=== PATIENT | female | born 1970 | race Caucasian/White ===

== ENCOUNTER 2021-07-05 09:07 | Emergency (ER) | payer OTHER, SELFPAY ==
[2021-07-05] VITALS (13 sets, daily range): BP systolic 141; BP diastolic 74; PULSE 68–78; RESP 13–22; TEMP 35.9; O2SAT 97–100
--- NOTE | ~2021-07-05 | XR_ITS ---
EXAMINATION: XR chest 2V DATE: 07/05/2021 09:32 INDICATION: Midsternal chest pain TECHNIQUE: PA and lateral views of the chest are obtained. COMPARISON: 12/21/2013 FINDINGS: The lungs are free of acute opacities. There is no pleural effusion or pneumothorax. The ca rdiomediastinal silhouette is normal. There is moderate thoracic spondylosis. IMPRESSION: 1. No acute cardiopulmonary abnormality. Reviewed, dictated and finalized at location A.
--- NOTE | 2021-07-05 09:14 | ECG_ITS ---
Measurements Intervals Ed[place] Rate: 77 P: 47 NE: 134 QRS: 22 QRSD: 96 T: 54 QT: 373 QTc: 424 Interpretive Statements SINUS RHYTHM NORMAL ECG Electronically Signed On 07-05-2021 9:23:40 CDT by Oj Gu D.O.
[2021-07-05] MEDS: ASPIRIN 81 MG CHEWABLE TABLET 324 MG PO (09:35)
[2021-07-05 09:51] LABS: Basophils Percent Auto 0.5 % (0.2-1.2); Eosinophils Percent Auto 0.2 % (0-4.4); Hematocrit 44.1 % (37.0-47.0); Hemoglobin 14.7 g/dL (12.0-15.0); Immature Granulocyte Absolute 0.03 K/mm3 (0.00-0.031); Immature Granulocyte Percent A 0.4 % (0-0.5); Lymphocytes Percent Auto 24.8 % (18.3-44.2); Mean Corpuscular HGB Conc 33.3 g/dl (32-36); Mean Corpuscular Volume 98.9 fl (80-100); Mean Platelet Volume 10.6 fl (7.4-10.4); Monocytes Absolute Auto 0.5 K/mm3 (0.1-0.6); Monocytes Percent Auto 6.5 % (2.6-8.5); Neutrophils Absolute Auto 5.5 K/mm3 (1.3-6.7); Neutrophils Percent Auto 67.6 % (45.5-73.1); Platelet Count Result 234 k/mm3 (150-375); Red Blood Count 4.46 M/mm3 (4.2-5.4); Red Cell Distribution Width 12.6 % (11.5-14.5); White Blood Count 8.1 K/mm3 (4.5-10.0)
[2021-07-05 09:59] LABS: Prothrombin Time 13.2 Seconds (11.1-14.7)
[2021-07-05 10:00] LABS: Partial Thromboplastin Time 29.7 SECONDS (22.3-36.8)
[2021-07-05 10:02] LABS: Alanine Aminotransferase 13 U/L (4-35); Albumin Level 4.5 g/dL (3.5-5.1); Alkaline Phosphatase 97 U/L (38-126); Anion Gap 8 mmol/L (8-16); Aspartate Amino Transferase 21 U/L (14-36); Bilirubin,Total 0.4 mg/dL (0.2-1.3); Blood Urea Nitrogen 11 mg/dL (7-17); Calcium 9.1 mg/dL (8.4-10.2); Carbon Dioxide 26 mmol/L (22-30); Chloride 104 mmol/L (98-107); Estimated CRCL calculation 58 ml/min; Estimated Glomerular Filt Rate 58; Glucose 108 mg/dL (65-110); Lipase 101 U/L (23-300); Potassium 4.3 mmol/L (3.4-5.0); Sodium 138 mmol/L (137-145)
[2021-07-05 10:13] LABS: Troponin I < 0.012 ng/mL (0.000-0.034)
--- NOTE | 2021-07-05 10:34 | ED.CHESTPAIN ---
HPI - Chest Pain General Chief Complaint: Chest Pain Stated Complaint: CP Time Seen by Provider: 07/05/21 09:12 Source: patient Mode of arrival: ambulatory Limitations: no limitations History of Present Illness HPI narrative: 51-year-old female presenting to the emergency department for evaluation of chest pain. Patient states last night when she was getting ready for bed she had onset of left-sided chest pain that did radiate to her left arm. Patient reports her symptoms lasted approximately 1 minute and then did resolve. Upon arrival to the department patient denies any chest pain. Patient states that she has had increased sweating of her feet but denies any other diaphoresis. Patient does report decreased p.o. intake over the last few days. Patient reports this morning when she went to work she once again began feeling poorly. Patient did have a blood pressure of 170/82 at work. Blood pressure is improved upon arrival to the ED. Patient is a smoker. Patient denies any prior history of high cholesterol, diabetes or hypertension. Patient reports she did have a stress test approximately 5 years ago. Patient denies any prior Angiocath. Related Data Allergies Allergy/AdvReac Type Severity Reaction Status Date / Time tramadol Allergy Intermediate Dizziness Verified 07/05/21 09:24 doxycycline Allergy Nausea Verified 07/05/21 09:24 Review of Systems Review of Systems: CONSTITUTIONAL: Denies fever, chills, or sweats. EYES: Denies visual changes, redness, or discharge. ENT: Denies rhinorrhea, congestion, sore throat, or otalgia. CARDIOVASCULAR: See HPI RESPIRATORY: Denies cough or dyspnea. GASTROINTESTINAL: Denies abdominal pain, nausea, vomiting, or diarrhea. GENITOURINARY: Denies dysuria or hematuria. SKIN: Denies rash or itching. MUSCULOSKELETAL: Denies back pain, joint pain, or myalgia. Exam Narrative: APPEARANCE: Well appearing, no pain, no distress, well-nourished. HEAD: normocephalic, atraumatic. EYES: PERRLA/EOMI, conjunctivae clear. NOSE: Normal no drainage NECK: Supple. No adenopathy, no masses. RESPIRATORY: Airway patent, respirations nonlabored. Clear to auscultation bilaterally, no rales, rhonchi, wheezing. CARDIOVASCULAR: Regular rate and rhythm without murmurs rubs or gallops. ABDOMINAL: Soft, nontender, nondistended, normal bowel sounds MUSCULOSKELETAL: Moves all extremities. Strength/ROM intact, No edema, No calf tenderness. NEURO: Alert. Cranial nerves II through XII intact. Grossly intact SKIN: Warm, dry. Normal Color Course Course Emergency Course: Patient was obtained the results of her work-up including chest x-ray, EKG and serial troponins. Patient was encouraged to have close follow-up with primary care physician for additional outpatient cardiac testing. Patient was also educated on reasons to return to the emergency department. All questions and concerns were addressed. Vital Signs Vital signs: Vital Signs Temperature 96.7 F L 07/05/21 09:09 Pulse Rate 77 07/05/21 09:09 Respiratory Rate 16 07/05/21 09:09 Blood Pressure 141/74 H 07/05/21 09:09 Pulse Oximetry 99 07/05/21 09:09 Temperature 96.7 F L 07/05/21 09:09 Pulse Rate 75 07/05/21 12:45 Respiratory Rate 14 07/05/21 12:45 Blood Pressure 141/74 H 07/05/21 09:09 Pulse Oximetry 98 07/05/21 12:45 MDM - Chest Pain Differential Diagnosis Differential diagnosis: Likely atypical chest pain and chest pain Lab Data Attestation: I reviewed the patient's lab results. Result diagrams: 07/05/21 09:42 07/05/21 09:42 Labs: Lab Results 07/05/21 07/05/21 07/05/21 Range/Units 09:42 09:42 09:42 WBC 8.1 (4.5-10.0) K/mm3 RBC 4.46 (4.2-5.4) M/mm3 Hgb 14.7 (12.0-15.0) g/dL Hct 44.1 (37.0-47.0) % MCV 98.9 (80-100) fl MCH 33.0 (26-34) pg MCHC 33.3 (32-36) g/dl RDW 12.6 (11.5-14.5) % Plt Count 234 (150-375) k/mm3 MPV 10.6 H (7.4-10.4) fl [place]
[2021-07-05 11:03] LABS: Magnesium 2.2 mg/dL (1.6-2.3)
[2021-07-05 12:34] LABS: Troponin I < 0.012 ng/mL (0.000-0.034)
== END 2021-07-05 13:14 | disposition home or self-care (01) ==
PROVIDERS: Emergency Provider Emergency Medicine; PCP Internal Medicine
DX: R07.89 Other chest pain (principal); F17.200 Nicotine dependence, unspecified, uncomplicated
CPT/HCPCS: 36415; 71046; 80053; 83690; 83735; 84484; 85025; 85610; 85730; 93005; 99284; A9270

== ENCOUNTER 2022-05-18 12:54 | Emergency (ER) | payer OTHER, SELFPAY ==
[2022-05-18 12:58] VITALS: BP 131/81; PULSE 110; RESP 18; TEMP 37.1; O2SAT 97
--- NOTE | 2022-05-18 13:38 | ED.SKABFB ---
HPI - Skin/Abscess/Foreign Bdy General Chief complaint: Skin/Abscess/Foreign Body <Elke Chandler PA-C - Last Filed: 05/18/22 18:29> Stated complaint: abscess <Elke Chandler PA-C - Last Filed: 05/18/22 18:29> Time Seen by Provider: 05/18/22 13:11 <Elke Chandler PA-C - Last Filed: 05/18/22 18:29> History of Present Illness HPI narrative: 51-year-old female reports for evaluation of an abscess to her upper mid back x5 days. She reports intermittent hot and cold flashes, but has not recorded her temp at home. Pt reports extensive history of abscesses in the past, most recently in the past 6 weeks with multiple small lesions to her bilateral extremities, scalp and back. Patient reports she has never seen a restaurant busser due to her insurance coverage and long wait times for appointment. Denies CP, neck pain, WILSON, n/v/d, history of recent back procedures or injections, drug use. She does report intermittent numbness to her LUE, however reports this is positional, specifically when she puts her left arm under her pillow at night. Denies other extremity paresthesias or weakness. Pt reports taking tylenol, flexeril, and using oatmeal baths w/ some improvement. <Elke Chandler PA-C - Last Filed: 05/18/22 18:29> Related Data Allergies/Adverse reactions: Allergies Allergy/AdvReac Type Severity Reaction Status Date / Time tramadol Allergy Intermediate Dizziness Verified 05/18/22 13:43 doxycycline Allergy Nausea Verified 05/18/22 13:43 hydrocodone Allergy Vomiting Verified 05/18/22 13:43 oxycodone Allergy Vomiting Verified 05/18/22 13:43 <Elke Chandler PA-C - Last Filed: 05/18/22 18:29> Review of Systems Review of Systems: CONSTITUTIONAL: Denies fever, chills EYES: Denies visual changes, redness, or discharge. ENT: Denies rhinorrhea, congestion, sore throat, or otalgia. CARDIOVASCULAR: Denies chest pain, palpitations, or edema. RESPIRATORY: Denies cough or dyspnea. GASTROINTESTINAL: Denies abdominal pain, nausea, vomiting, or diarrhea. GENITOURINARY: Denies dysuria or hematuria. SKIN: Denies rash or itching. MUSCULOSKELETAL: Denies joint pain, or myalgia. NEUROLOGIC: Denies headache, numbness, dizziness, or weakness. PSYCHIATRIC: Denies anxiety or depression. <Elke Chandler PA-C - Last Filed: 05/18/22 18:29> Exam Narrative: GENERAL: Well-appearing, well-nourished, and in no acute distress. Pt sitting in exam bed comfortably and conversational. HEAD: Normocephalic, atraumatic. EYES: PERRLA and EOMI. NECK: Supple. No adenopathy or masses. No midline vertebral tenderness. CHEST: Clear to auscultation. No respiratory distress. No wheezes rales or rhonchi HEART: Regular rate and rhythm. No murmur heard. Normal peripheral pulses. ABDOMEN: Soft, nontender, nondistended, normal active bowel sounds. EXTREMITIES: Normal range of motion. No edema. SKIN: 4cm of induration with overlying blanching erythema and warmth and a central pustule located in midline back around T2-T4. No areas of fluctuance. Multiple healing lesions to upper extremities and scalp without areas of induration, fluctuation, erythema. NEURO: No focal deficits. Alert and oriented x3. Machine Cell Tuber strength, dorsiflexion and plantarflexion 5/5 bilaterally. Sensation intact in all dermatomes to BUE and BLE. PSYCH: Normal mood and affect. <Elke Chandler PA-C - Last Filed: 05/18/22 18:29> Course [employer]ING [employer]AT CAPTAIN/PA Physician Supervision For this patient encounter, I reviewed the SHRIMPING BOAT CAPTAIN or PA documentation, treatment plan, and medical decision making and I had [id number] time with this patient. I performed all aspects of the MDM as documented. <Juanis Chand MD - Last Filed: 06/13/22 15:57> Vital Signs Vital signs: Vital Signs Temperature 98.7 F 05/18/22 12:58 Pulse Rate 110 H 05/18/22 12:58 Respiratory Rate 18 05/18/22 12:58 Blood Pressure 131/81 05/18/22 12:58 Pulse Oximetry 97 05/18/22 12:58 Temperature
[2022-05-18 13:42] VITALS: BP 144/85; PULSE 97; RESP 18; O2SAT 99
[2022-05-18] MEDS: SODIUM CHLORIDE 0.9% IV 1,000 ML 999 ML IV CONT (13:50)
[2022-05-18] MEDS: KETOROLAC 30 MG/ML VIAL (*BKC) IV PUSH (13:51)
[2022-05-18 14:07] LABS: Basophils Absolute Auto 0.1 K/mm3 (0.0-0.1); Basophils Percent Auto 0.3 % (0.2-1.2); Eosinophils Absolute Auto 0.1 K/mm3 (0-0.3); Eosinophils Percent Auto 0.7 % (0-4.4); Hematocrit 42.7 % (37.0-47.0); Immature Granulocyte Absolute 0.05 K/mm3 (0.00-0.031); Immature Granulocyte Percent A 0.3 % (0-0.5); Lymphocytes Absolute Auto 2.45 K/mm3 (0.9-3.2); Lymphocytes Percent Auto 16.9 % (18.3-44.2); Mean Corpuscular HGB Conc 35.1 g/dl (32-36); Mean Corpuscular Hemoglobin 33.3 pg (26-34); Mean Corpuscular Volume 94.9 fl (80-100); Mean Platelet Volume 10.3 fl (7.4-10.4); Monocytes Absolute Auto 0.8 K/mm3 (0.1-0.6); Monocytes Percent Auto 5.4 % (2.6-8.5); Neutrophils Absolute Auto 11.1 K/mm3 (1.3-6.7); Neutrophils Percent Auto 76.4 % (45.5-73.1); Platelet Count Result 245 k/mm3 (150-375); Red Cell Distribution Width 12.3 % (11.5-14.5); White Blood Count 14.5 K/mm3 (4.5-10.0)
[2022-05-18 14:09] LABS: Alanine Aminotransferase 22 U/L (6-35); Albumin Level 4.6 g/dL (3.5-5.1); Alkaline Phosphatase 105 U/L (38-126); Anion Gap 6 mmol/L (8-16); Aspartate Amino Transferase 30 U/L (14-36); Bilirubin,Total 0.4 mg/dL (0.2-1.3); Blood Urea Nitrogen 9 mg/dL (7-17); Calcium 9.6 mg/dL (8.4-10.2); Carbon Dioxide 27 mmol/L (22-30); Chloride 105 mmol/L (98-107); Estimated CRCL calculation 68 ml/min; Estimated Glomerular Filt Rate > 60; Glucose 106 mg/dL (65-110); Sodium 138 mmol/L (137-145)
[2022-05-18 16:12] VITALS: BP 122/79; PULSE 80; RESP 18; O2SAT 100
== END 2022-05-18 16:14 | disposition home or self-care (01) ==
PROVIDERS: Emergency Provider Physician Assistant; PCP Internal Medicine
DX: L03.312 Cellulitis of back [any part except buttock and flank] (principal); L02.212 Cutaneous abscess of back [any part, except buttock and flank]
CPT/HCPCS: 10060; 36415; 80053; 85025; 96361; 96374; 99284; J1885; J7030

== ENCOUNTER 2023-02-12 01:29 | Day surgery (SDC) | payer OTHER, SELFPAY ==
[2023-01-28 13:21] VITALS: BMI 31.0
--- NOTE | 2023-02-10 10:29 | SUR.PREOP ---
Patient called regarding upcoming procedure. Reviewed preop instructions, appointment times, and procedure prep.
--- NOTE | 2023-02-11 15:18 | PM.HPGS ---
History of Present Illness History of Present Illness Consent: Risks, benefits, and alternatives have been discussed and questions answered. Patient agrees to proceed with procedure. Chief complaint: neoplasm screening Narrative: Carmen Dillon is a 52 year old female Referred for colon cancer screening. Review of Systems Review of Systems: All systems reviewed & are unremarkable except as noted in HPI and below [facility] Social History Social History Smoking packs per day: 1 Smoking cigarettes per day: 20.0 Smoking status: Current every day smoker Tobacco type: cigarettes Alcohol intake: never Substance use: never Substance use type: does not use Living arrangements: with family Spiritual care concerns: No Meds Home Medications and Allergies Home Medications Medication Instructions Recorded Confirmed Type alprazolam 1 mg tablet 0.5 mg PO HS 01/28/23 02/12/23 History cholecalciferol (vitamin D3) 125 125 mcg PO DAILY 01/28/23 02/12/23 History mcg (5,000 unit) capsule (Dialyvite Vitamin D) estradiol 1 mg tablet 1 mg PO DAILY 01/28/23 02/12/23 History hydroxyzine pamoate 25 mg capsule 25 mg PO DAILY 01/28/23 02/12/23 History (Vistaril) metoclopramide HCl 10 mg tablet 10 mg PO DAILY 01/28/23 02/12/23 History (Reglan) inswbulqvysf-ghtfnhyr-urzxul 1 tablet PO DAILY 01/28/23 02/12/23 History tablet (Multivitamin 50 Plus tablet) trazodone 100 mg tablet 100 mg PO HS 01/28/23 02/12/23 History Allergies Allergy/AdvReac Type Severity Reaction Status Date / Time tramadol Allergy Intermediate Dizziness Verified 02/12/23 11:42 doxycycline Allergy Nausea Verified 02/12/23 11:42 hydrocodone Allergy Vomiting Verified 02/12/23 11:42 oxycodone Allergy Vomiting Verified 02/12/23 11:42 Exam Const: General: alert Orientation/consciousness: patient oriented x3 Resp: Auscultation: clear to auscultation bilaterally Cardio: Rhythm: regular rhythm GI: GI Palp: Yes Soft to palpation and No Tenderness to palpation present (GI) Neuro: General: patient oriented x3 Assessment and Plan Assessment and plan (1) Colon cancer screening: Code(s): Z12.11 - Encounter for screening for malignant neoplasm of colon Status: Acute Assessment and Plan: Colonoscopy with possible biopsy or polypectomy or cautery or injection of substances.
--- NOTE | 2023-02-12 11:46 | P.PNAN_ITS ---
Anes - Initial Pre Proc Eval Procedure: Operation Date: 02/12/23 13:00 Proposed Procedures p Screening Colonoscopy - Linus Singh MD Date/Time: 02/12/23 11:46 Surgeon: Linus Singh MD Pre Op Diagnosis: neoplasm screening Patient Data Age: 52 Gender: F Height: 1.57 m Weight: 77 kg Allergies Allergy/AdvReac Type Severity Reaction Status Date / Time tramadol Allergy Intermediate Dizziness Verified 02/12/23 11:42 doxycycline Allergy Nausea Verified 02/12/23 11:42 hydrocodone Allergy Vomiting Verified 02/12/23 11:42 oxycodone Allergy Vomiting Verified 02/12/23 11:42 Home Medications Medication Instructions Recorded Confirmed Type alprazolam 1 mg tablet 0.5 mg PO HS 01/28/23 02/12/23 History cholecalciferol (vitamin D3) 125 125 mcg PO DAILY 01/28/23 02/12/23 History mcg (5,000 unit) capsule (Dialyvite Vitamin D) estradiol 1 mg tablet 1 mg PO DAILY 01/28/23 02/12/23 History hydroxyzine pamoate 25 mg capsule 25 mg PO DAILY 01/28/23 02/12/23 History (Vistaril) metoclopramide HCl 10 mg tablet 10 mg PO DAILY 01/28/23 02/12/23 History (Reglan) wafwbsvtsoqg-znfljuzw-jwcgil 1 tablet PO DAILY 01/28/23 02/12/23 History tablet (Multivitamin 50 Plus tablet) trazodone 100 mg tablet 100 mg PO HS 01/28/23 02/12/23 History Patient hx anesthesia problems: none Family hx anesthesia problems: none Results Review: All pre-operative results and documents have been reviewed as part of the pre- operative evaluation. REPLACED BY [facility] Social History Social History Smoking packs per day: 1 Smoking cigarettes per day: 20.0 Smoking status: Current every day smoker Tobacco type: cigarettes Alcohol intake: never Substance use: never Substance use type: does not use Living arrangements: with family Spiritual care concerns: No Anes - Eval Final PreProcedure Day of Procedure 02/12/23 11:46 Patient weight: obese Heart: regular rate and rhythm Lungs: clear to auscultation Airway: Mallampati scale class II Neurological: alert and oriented Last oral intake: >/= 8 hours ASA classification: III Emergent: no Anesthetic plan: proceed Anesthesia type and monitoring: general GIVS and standard monitoring Results Review: All pre-operative results and documents have been reviewed as part of the pre- operative evaluation. Informed Consent: The patient's anesthetic plan and its attendant risks and benefits were discussed with the patient/family/POA. Questions were solicited and answers provided to the satisfaction of the patient/family/POA.
[2023-02-12] MEDS: LACTATED RINGERS 1,000 ML 150 ML IV CONT (11:58)
[2023-02-12 12:43] VITALS: BP 110/73; PULSE 84; RESP 22; O2SAT 98
[2023-02-12 12:53] VITALS: BP 110/63; PULSE 77; RESP 20; O2SAT 100
[2023-02-12 13:03] VITALS: BP 119/78; PULSE 72; RESP 19; O2SAT 100
== END 2023-02-12 13:16 | disposition home or self-care (01) ==
PROVIDERS: PCP Internal Medicine; Visit Provider Internal Medicine Gastroenterology
PROC: 0DJD8ZZ Inspection of Lower Intestinal Tract, Via Natural or Artificial Opening Endoscopic (ICD-10-PCS; CPT 45378; principal; 2023-02-12 13:00)
DX: Z12.11 Encounter for screening for malignant neoplasm of colon (principal); K57.30 Diverticulosis of large intestine without perforation or abscess without bleeding; K64.8 Other hemorrhoids; F17.210 Nicotine dependence, cigarettes, uncomplicated; Z79.890 Hormone replacement therapy; Z79.899 Other long term (current) drug therapy
CPT/HCPCS: 45378; J2704; J7120

== ENCOUNTER 2023-06-03 09:36 | Emergency (ER) | payer OTHER, SELFPAY ==
[2023-06-03 10:32] VITALS: BP 134/80; PULSE 70; RESP 20; TEMP 36.5; O2SAT 100
--- NOTE | 2023-06-03 11:00 | ED.GENADULT ---
HPI - General Adult General Chief complaint: Skin/Abscess/Foreign Body Stated complaint: poss shingles Time Seen by Provider: 06/03/23 10:27 History of Present Illness HPI narrative: Carmen Dillon is a 52 y/o female who presents with reports of having a rash form that is painful to her left hip area a couple days ago. Denies any fevers /chills -reports pain and mild itching Related Data Home Medications Medication Instructions Recorded Confirmed alprazolam 1 mg tablet 0.5 mg PO HS 01/28/23 02/12/23 cholecalciferol (vitamin D3) 125 125 mcg PO DAILY 01/28/23 02/12/23 mcg (5,000 unit) capsule (Dialyvite Vitamin D) estradiol 1 mg tablet 1 mg PO DAILY 01/28/23 02/12/23 hydroxyzine pamoate 25 mg capsule 25 mg PO DAILY 01/28/23 02/12/23 (Vistaril) metoclopramide HCl 10 mg tablet 10 mg PO DAILY 01/28/23 02/12/23 (Reglan) lzxxlbyxptyu-kcutpuvq-mrzeif 1 tablet PO DAILY 01/28/23 02/12/23 tablet (Multivitamin 50 Plus tablet) trazodone 100 mg tablet 100 mg PO HS 01/28/23 02/12/23 Allergies Allergy/AdvReac Type Severity Reaction Status Date / Time tramadol Allergy Intermediate Dizziness Verified 02/12/23 11:42 doxycycline Allergy Nausea Verified 02/12/23 11:42 hydrocodone Allergy Vomiting Verified 02/12/23 11:42 oxycodone Allergy Vomiting Verified 02/12/23 11:42 Review of Systems Review of Systems: All systems reviewed & are unremarkable except as noted in HPI and below PMFSH Social History Social History Smoking packs per day: 1 Smoking cigarettes per day: 20.0 Smoking status: Current every day smoker Tobacco type: cigarettes Alcohol intake: never Substance use: never Substance use type: does not use Living arrangements: with family Spiritual care concerns: No Exam Narrative: GENERAL: Well-appearing, well-nourished, and in no acute distress. HEAD: Normocephalic, atraumatic. EYES: PERRLA and EOMI. ENT: Nares clear, no rhinorrhea or epistaxis. Mucous membranes moist. Oropharynx without tonsillar hypertrophy exudate or other lesions. Bilateral TMs pearly al nonbulging NECK: Supple. No adenopathy or masses. No carotid bruits or JVD CHEST: Clear to auscultation. No respiratory distress. No wheezes rales or rhonchi HEART: Regular rate and rhythm. No murmur heard. Normal peripheral pulses. ABDOMEN: Soft, nontender, nondistended, normal active bowel sounds. EXTREMITIES: Normal range of motion. No edema. SKIN: Warm, dry, vesicular rash to left pelvic region wrapping around right side/ painful with palpation appears consistent with herpes zoster NEURO: No focal deficits. Alert and oriented x3. PSYCH: Normal mood and affect. Course Vital Signs Vital signs: Vital Signs Temperature 36.5 C 06/03/23 10:32 Pulse Rate 70 06/03/23 10:32 Respiratory Rate 20 06/03/23 10:32 Blood Pressure 134/80 06/03/23 10:32 Pulse Oximetry 100 06/03/23 10:32 Oxygen Delivery Room Air 06/03/23 10:32 Temperature 36.5 C 06/03/23 10:32 Pulse Rate 70 06/03/23 10:32 Respiratory Rate 20 06/03/23 10:32 Blood Pressure 134/80 06/03/23 10:32 Pulse Oximetry 100 06/03/23 10:32 Oxygen Delivery Room Air 06/03/23 10:32 Medical Decision Making [facility] Narrative Medical decision making narrative: 52 y/o female presents with reports of having pain to her left hip area that started about a week ago and then she noticed a painful rash pop up around the left hip area a couple days ago vesicular rash to left pelvic region wrapping around right side/ painful with palpation appears consistent with herpes zoster Patient denies wanting anything for pain Plan to start her on Acyclovir Follow up with PCP Return precautions provided. Medical Records Medical records reviewed: Yes I reviewed the external patient's medical records. Vital Signs Vital Signs: Vital Signs Temperature 36.5 C 06/03/23 10:32 Pulse Rate 70
[2023-06-03] MEDS: diphenhydrAMINE HCl CAP 25 MG CAPSULE PO (11:05)
[2023-06-03 11:08] VITALS: BP 135/80; PULSE 80; RESP 16; TEMP 36.5; O2SAT 100
== END 2023-06-03 11:11 | disposition home or self-care (01) ==
PROVIDERS: Emergency Provider Nurse Practitioner Family; PCP Internal Medicine
DX: B02.9 Zoster without complications (principal); F17.210 Nicotine dependence, cigarettes, uncomplicated
CPT/HCPCS: 99283; A9270

== ENCOUNTER 2024-04-12 13:01 | Outpatient (CLI) | payer OTHER, SELFPAY ==
--- NOTE | 2024-04-12 13:45 | NEURO_ITS ---
Impression: # Complains of numbness in feet. Non-diabetic. ? # Normal motor and sensory Nerve Conduction Study. ? # Normal needle/EMG exam without fibs or myotonia. ? # Clinical correlation recommended; Could be related to small fiber neuropathy. Nerve Conduction Studies Anti Sensory Summary Table ?Stim Site NR Peak (ms) P-T Amp (?V) Site1 Site2 Delta-P (ms) Dist (cm) Marlon (m/s) Left Sup Fibular Anti Sensory (Ant Lat Mall) 14 cm ? 2.8 10.2 14 cm Ant Lat Mall 2.8 16.0 57 Right Sup Fibular Anti Sensory (Ant Lat Mall) 14 cm ? 3.0 13.9 14 cm Ant Lat Mall 3.0 16.0 53 Left Sural Anti Sensory (Lat Mall) Calf ? 3.3 14.4 Calf Lat Mall 3.3 16.0 48 Right Sural Anti Sensory (Lat Mall) Calf ? 3.2 17.6 Calf Lat Mall 3.2 16.0 50 Motor Summary Table ?Stim Site NR Onset (ms) O-P Amp (mV) Site1 Site2 Delta-0 (ms) Dist (cm) Marlon (m/s) Left Peroneal Motor (Vastus Med) Ankle ? 4.2 3.9 Popit Ankle 7.2 39.0 54 Popit ? 11.4 3.7 Right Peroneal Motor (Vastus Med) Ankle ? 4.3 4.9 Popit Ankle 7.0 37.0 53 Popit ? 11.3 4.5 Left Tibial Motor (Abd Gorman Brev) Ankle ? 4.7 3.1 Knee Ankle 7.5 39.0 52 Knee ? 12.2 3.6 Right Tibial Motor (Abd Gorman Brev) Ankle ? 4.6 6.6 Knee Ankle 7.6 37.0 49 Knee ? 12.2 6.5 F Wave Studies ?NR F-Lat (ms) L-R F-Lat (ms) Left Peroneal (Mrkrs) (EDB) ? 45.16 1.48 Right Peroneal (Mrkrs) (EDB) ? 46.64 1.48 Left Tibial (Mrkrs) (Abd Hallucis) ? 46.22 0.35 Right Tibial (Mrkrs) (Abd Hallucis) ? 46.57 0.35 EMG ?Side Muscle Nerve Root Ins Act Fibs Amp Dur Recrt Comment Right AntTibialis Dp Br Fibular L4-5 Nml Nml Nml Nml Nml Right Gastroc Tibial S1-2 Nml Nml Nml Nml Nml Right Fibularis Long Sup Br Fibular L5-S1 Nml Nml Nml Nml Nml Right Flex Dig Long Tibial L5-S2 Nml Nml Nml Nml Nml Right Ext Dig Brev Dp Br Fibular L5, S1 Nml Nml Nml Nml Nml Right QuadratusFem QuadFemoris L4-5, S1 Nml Nml Nml Nml Nml Left AntTibialis Dp Br Fibular L4-5 Nml Nml Nml Nml Nml Left Gastroc Tibial S1-2 Nml Nml Nml Nml Nml Left Fibularis Long Sup Br Fibular L5-S1 Nml Nml Nml Nml Nml Left Flex Dig Long Tibial L5-S2 Nml Nml Nml Nml Nml Left Ext Dig Brev Dp Br Fibular L5, S1 Nml Nml Nml Nml Nml Left QuadratusFem QuadFemoris L4-5, S1 Nml Nml Nml Nml Nml ? MTDD
--- OUTSIDE RECORDS SUMMARY | 2024-04-12 13:50 | XMS_ITS | Clinical Summary ---
Author Organization [address] Address [address] [place] [address] Care Team Providers Care Loom Winder Tender Name Role Phone Rustam Cool MD Primary Care Provider [phone] Allergies Active Allergy Reactions Criticality Noted Date Comments Doxycycline Dizziness,Nausea only Low 12/21/2015 Oxycodone Vomiting Low 02/19/2022 Tramadol Dizziness Low 12/21/2015 Hydrocodone-Acetaminophen Vomiting Low 02/19/2022 Medications albuterol HFA (PROVENTIL HFA,VENTOLIN HFA,PROAIR HFA) 90 mcg/actuation inhaler 2 puffs every 8 (eight) hours as needed Active ALPRAZolam (XANAX) 1 mg tablet Take 1 tablet by mouth 3 (three) times a day as needed 02/07/2022 Active cholecalciferol (VITAMIN D-3) 2000 unit capsule Take 2,000 Units by mouth daily Active cyclobenzaprine (FLEXERIL) 10 mg tablet Take 10 mg by mouth 3 (three) times a day as needed 02/03/2022 Active estradioL (ESTRACE) 1 mg tablet Take 1 mg by mouth daily 01/27/2022 Active fluticasone propionate (FLONASE) 50 mcg/actuation nasal spray INSTILL 2 SPRAYS INTO EACH NOSTRIL ONCE DAILY 01/27/2022 Active metoclopramide (REGLAN) 10 mg tablet TAKE 1 TABLET BY MOUTH 1-3 TIMES A DAY NEEDED FOR BLOATING 01/25/2022 Active traZODone (DESYREL) 100 mg tablet Take 100 mg by mouth nightly 02/15/2022 Active MULTIVITAMIN ORAL Take 1 tablet by mouth daily Active naproxen (NAPROSYN) 250 mg tablet Take 250 mg by mouth 2 (two) times a day as needed 05/18/2022 Active omeprazole (PriLOSEC) 20 mg capsuleIndicati ons:gerd Take 20 mg by mouth daily Active Active Problems Problem Noted Date Diagnosed Date Abscess 05/20/2022 Blepharitis of left lower eyelid 02/19/2022 Overview (02/19/2022): Added automatically from request for surgery [id number] Immunizations Name Administration Dates Next Due Influenza, Unspecified 12/30/2021 Surgical History Surgery Date Site/Laterality Comments HYSTERECTOMY Social History Tobacco Use Types Packs/Day Years Used Date Smoking Tobacco: Every Day Cigarettes 1 Tobacco Cessation:Ready to Q uit: Not Asked; Counseling Given: Not Answered OASIS D0700: Social Isolation Answer Da te Recorded Frequency of experiencing loneliness or isolatio n Never 07/01/2022 OASIS A1250: Transportation Answer Date Recorded Lack of Transportation (Medical) No 07/01/2022 Lack of Transportation (Non-Medical) No 07/01/2022 Patient Unable or Declines to Respond No 07/01/2022 OASIS B1300: Health Literacy Answer Saqib e Recorded Frequency of needing help to read materials from doctor or pharmacy Never 07/01/2022 Social Connection and Isolat ion Panel [NHANES] Answer Date Recorded In a typical week, how many times do you talk on the phone with family, friends, or neighbors? More than three times a week 05/21/2022 How often do you get togethe r with friends or relatives? More than three times a week 05/21/2022 How often do you attend chur or advent services? Never 05/21/2022 Do you belong to any clubs o r organizations such as temple groups, unions, fraternal or athletic groups, or school groups? No 05/21/2022 How often do you attend meet ings of the clubs or organizations you belong to? Never 05/21/2022 Are you , , di vorced, , never , or living with a partner? 05/21/2022 AUDIT-C Answer Date Recorded Q1: How often do you have a drink containing alcohol? Never 04/01/2022 Q2: How many drinks containi ng alcohol do you have on a typical day when you are drinking? Patient does not drink Q3: How often do you have si x or more drinks on one occasion? Never 04/01/2022 Overall Financial Resource Strain (CARDIA) Answe r Date Recorded How hard is it for you to pa y for the very basics like food, housing, medical care, and heating? Not very hard 05/21/2022 PRAPARE - Transportation Answer Date Re corded In the past 12 months, has l ack of transportation kept you from medical appointments or from getting medications? No 05/01 In the past 12 months, has l ack of transportation kept you from meetings, work, or from getting things needed for daily living? No 05/21/2022 Personal Safety Answer Date Recorded Getting School Help Needed Not on file 06/09 Comments No Sex and Gender Information Value Date Recorded Sex Assigned at Not on file Legal Sex Female 9:08 PM GUEST RELATIONS REPRESENTATIVE Gender Identity Not on file Sexual Orientation Not on file Obstetrics History Last Filed Vital Signs Vital Sign Reading Time Taken Comments Blood Pressure 122/60 07/01/2022 10:56 AM CDT Pulse 80 07/01/2022 10:56 AM CDT Temperature 36.7 C (98 F) 07/01/2022 10:56 AM CDT Respiratory Rate 18 07/01/2022 10:56 AM CDT Oxygen Saturation 98% 07/01/2022 10:56 AM CDT Inhaled Oxygen Concentration - - Weight 76.7 kg (169 lb) 05/27/2022 1:23 PM CDT Height 157.5 cm (5' 2 ) 05/27/2022 1:23 PM CDT Body Mass Index 30.91 05/27/2022 1:23 PM CDT Plan of Treatment Health Maintenance Due Date Last Done Comments Breast Cancer Screening-Mammogram 1970 Colon Cancer Screening-Colonoscopy 1970 Depression Screening 1970 Hepatitis C Screening 1970 Pneumococcal vaccine <65 (1 of 2 - PCV) 07/01/1975 DTaP/Tdap/Td Vaccine (1 - Tdap) 1980 Hepatitis B Screening 07/01/1987 Regular Well Visit/Exam 18-64 07/01/1987 Zoster Vaccine (1 of 2) 07/01/2019 Covid-19 Vaccine ( season) 2023 01/18/2021, 05/26/2020, 05/03/2020 Influenza Vaccine (#1) 2023 12/30/2021, 2015 Insurance [facility] Care Teams Loom Winder Tender Relationship Specialty Start Date End Date Rustam Cool MD [address] [place] [address] PCP - General 02/05/19
--- OUTSIDE RECORDS SUMMARY | 2024-04-12 13:50 | XMS_ITS | CONTINUITY OF CARE DOCUMENT ---
Author Name aj rocha Address Unknown Organization [facility] Address [address] [place] [address] Phone [phone] Care Team Providers Care Drapery Installer Name Role Phone aj rocha Unavailable Unavailable
--- OUTSIDE RECORDS SUMMARY | 2024-04-12 13:50 | XMS_ITS | Patient Health Summary ---
Author Organization [facility] Address [address] [place] [address] Care Team Providers Care Director Of Collections Name Role Phone Cody Piña Primary Care Provider [phone] Note from [facility],non-owned Affiliates and Associated Physician Practices is amultiple site organization consisting of ambulatory clinics and hospital sitesin [place], [place], [place] and [place]. This disclosure is being madepursuant to the Care Everywhere program and may not contain all information available regarding this patient. Last updated 17.[facility] Allergies * Doxycycline * Hydrocodone-Acetaminophen(Vomiting) -Low Criticality * Oxycodone(Vomiting) -Low Criticality * Tramadol Medications * Be aware that medications may not be up to date on this document. Alwaysverify current medications with the patient. * Multiple Vitamins-Minerals (MULTIVITAMIN ADULT EXTRA C PO) Take 1 tablet by mouth once daily * Cholecalciferol 50 MCG (2000 UT) Take 2,000 Units by mouth once daily * estradiol (Estrace) 1 MG tablet(Started 01/27/2022) Take 1 (one) tablet by mouth once daily * metoclopramide (Reglan) 10 MG tablet(Started 05/21/2022) TAKE 1 TABLET BY MOUTH 1-3 TIMES A DAY NEEDED FOR BLOATING * traZODone (Desyrel) 100 MG tablet(Started 05/15/2022) Take 1 (one) tablet by mouth * ALPRAZolam (Xanax) 1 MG tablet(Started 02/07/2022) Take 1 (one) tablet by mouth 3 times daily as needed * clindamycin (Cleocin) 1 % lotion(Started 04/21/2023) Apply to affected area on the trunk and extremities 1-2 times daily. 30 day supply. 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 Abscess 05/20/2022 10/21/2022 Blepharitis of left lower eyelid 02/19/2022 10/21/2022 Immunizations * FLU VACCINE QUAD IIV4 PF ID(Given 12/21/2015) Social History Tobacco Use Types Packs/Day Years Used Date Smoking Tobacco: Every Day Cigarettes Smokeless Tobacco: Never Tobacco Cessation:Ready to Q uit: Not Asked Sex and Gender Information Value Date Recorded Sex Assigned at Not on file Gender Identity Not on file Sexual Orientation Not on file Procedures * CULTURE WOUND+GRAM STAIN(Performed 10/21/2022) * LAB RESULTS ORDER(Performed 10/21/2022) Results * CULTURE WOUND+GRAM STAIN (10/21/2022 2:47 PM CDT) Culture Aerobic [facility] Comment: CULTURE, AEROBIC BACTERIA WITH GRAM STAIN Micro Number: [id number] Test Status: Final Specimen Source: L upper arm Specimen Quality: Adequate Gram Stain: No organisms or white blood cells seen Result: Growth of skin ca (note: Growth does not include S. aureus, beta-hemolytic Streptococci or P. aeruginosa). Test Performed at: [facility] [address] DAMARIS MIX MD 10/21/2022 2:47 PM CDT 10/22/2022 5:30 AM CDT Rocael Hernandez MD LAB - MICROBIOLOGY O RDERABLES [address] [address] * LAB RESULTS ORDER (10/21/2022) Narrative 10/21/2022 Ordered by an unspecified provider. Scanned Document LAB - THERAPEUTIC DR HORAN MONITORING ORDERABLES Care Teams Director Of Collections Relationship Specialty Start Date End Date Cody Piña [address] [place] [address] PCP - General 10/20/23
--- OUTSIDE RECORDS SUMMARY | 2024-04-12 13:50 | XMS_ITS ---
Author Organization [facility] Address [address] [place] [address] Care Team Providers Care Shoe Patternmaker Name Role Phone Cody Torres Primary Care Provider [phone] Catrina Thacker Unavailable [phone] Allergies Allergen (clinical drug ingredient) Drug/Non Drug Allergy documented on EMR Reaction Allergy Type Onset Date Status oxycodone oxyCODONE HCl nausea and vomiting Drug Allergy Active Vicodin nausea and vomiting Drug Allergy Active doxycycline Doxycycline nausea and vomiting Drug Allergy Active codeine Codeine nausea and vomiting Drug Allergy Active hydrocodone Hydrocodone nausea and vomiting Drug Allergy Active REASON FOR VISIT bilateral leg pain Medications Medication SIG (Take, Route, Frequency, Duration) Notes Start Date End Date Status Estradiol 1 MG 1 tablet Orally Once a day Active Viibryd 20 MG 1 tablet with food Orally Once a day for 30 days Active Varenicline Tartrate 0.5 MG 1 tablet after eating with a full glass of water DAILY FOR THREE DAYS, TWICE DAILY FOR 4 DAYS, THEN BEGIN 1 MG TABS Orally DIRECTED for 7 days TAKE FOR 7 DAYS, THEN BEGIN 1 MG TABLETS 02/15/2024 02/22/2024 Active Xanax 0.5 MG 0.5-1 tablet as need ed Orally once a day for 30 days Active Propranolol HCl 10 MG 1 tablet Orally twice daily for 30 days As needed for anxiety Active Calcium 600 MG 1 tablet with meals Orally Twice a day Active traZODone HCl 150 MG 0.5-1 tablet as nee ded at bedtime Orally Once a day for 30 days Active Multivitamin - 1 tablet Orally Once a day Active Vitamin D 50 MCG (1999 UT) 1 tablet Oral ly Once a day Active Varenicline Tartrate 1 MG 1 tablet after eating with a full glass of water Orally Twice a day for 30 days (BEGIN AFTER COMPLETING 0.5 MG TAB) 02/23/2024 Active Social History Tobacco Use: Social History Observation Description Date Details (start date - stop date) Current Smoker NA - NA Sex Assigned At : Social History Observation Description Sex Assigned At Female Tobacco Control (Standard) Question Answer Notes Tobacco use: Current smoker Section Notes: Prescription # Filled Written Drug Label Qty Days Strength MME Prescriber Pharmacy Refill No. Refills State 09/23/2023 09/23/2023 ALPRAZolam 30.0 30 1 MG NA Catrina Thacker [facility] - [id number] [id number], [place], [place] NA 0 [place] 1 [id number] 08/22/2023 08/17/2023 ALPRAZolam 30.0 30 1 MG NA Catrina Thacker [facility] - [id number] [id number], [place], [place] NA 0 [place] 1 [id number] 07/22/2023 07/22/2023 ALPRAZolam 30.0 30 1 MG NA Catrina Thacker Inventory Control Analyst - [id number] [facility] Vital Signs Weight 185.6 lbs 02/15/2024 Height 62 in 02/15/2024 BMI 33.94 kg/m2 02/15/2024 Blood pressure systolic 120 mm Hg 02/15/20 24 Blood pressure diastolic 78 mm Hg 024 Heart Rate 75 /min 02/15/2024 Oximetry 98 % 02/15/2024 Respiratory Rate 16 /min 02/15/2024 Encounters Encounter Location Date Provider Diagnosis [address] [place] [address] 02/15/2024 Cody Torres PAD (peripheral miguel ry disease) I73.9 ; Tingling of both feet R20.2 and Nicotine dependence, unspecified, uncomplicated F17.200 Assessments Encounter Date Diagnosis (ICD Code) Assessment Notes Treatment Notes Treatment Clinical Notes Section Notes 02/15/2024 PAD (peripheral artery disease) (ICD-10 - I73.9) 02/15/2024 Tingling of both feet (ICD-10 - R20.2) WORK ON SMOKING CESSATION, AVOID SITTING WITH LEGS UNDER OR LEGS CROSSED. WALK TOLERATED AT LEAST 30 MIN PER DAY. 02/15/2024 Nicotine dependence, unspecified, uncomplicated (ICD-10 - F17.200) WARNED ABOUT POSSIBLE NIGHTMARES WITH CHANTIX. HAD SCREENING CT 11/2023. Plan Of Treatment Medication Medication Name Sig Start Date Stop Date Notes Varenicline Tartrate 0.5 MG 1 tablet aft er eating with a full glass of water DAILY FOR THREE DAYS, TWICE DAILY FOR 4 DAYS, THEN BEGIN 1 MG TABS Orally DIRECTED for 7 days 02/15/2024 02/22/2024 Varenicline Tartrate 1 MG 1 tablet after eating with a full glass of water Orally Twice a day for 30 days 02/23/2024 Future Test Test Name Order Date Arterial Doppler 02/15/2024 Nerve conduction study and lower extremi ty EMG 02/15/2024 Next Appt Details Follow Up: 4 Weeks, Reason: AFTER ARTERIAL DOPPLER, NCV/EMG Progress Notes * Erin DILLONraDOB:1970 ( 53 yo F)Acc No.[id number]:02/15/2024 Progress Notes Patient: Carmen CORDOBA Provider: Malcom Torres :1970 A ge:53 Y S ex:Female Date:02/15/2024 Address:[address] [place], [place] [id number] Check In:02:30 PM POWER LINE LINEMAN Subjective: * Chief Complaints: * B ilateral leg pain * HPI: I nterim History: FEET ALWAYS COLD. BUT WHEN SHE WEARS SHOES HER FEET SWEAT.. FROM KNEES DOWN SHE HAS A THROBBING SENSATION IN HER LEGS. SITS IN CHAIR WITH FEET UP UNDER HER. HAS NO PAIN WHEN LYING IN BED AT NIGHT. WALKING DOES NOT MAKE IT WORSE OR BETTER. IS CURRENTLY DOING HOME HEALTH WORK. ONSET OF SYMPTOMS A FEW MONTHS AGO. SMOKES ABOUT 1/2-1 PPD. HAS CUSTOM ORTHOTICS FROM 5 YEARS AGO. THEY CAUSE HER FEET TO HURT WORSE. Emergency room visit N o. Was hospitalized N o. D epression Screening: PHQ-9 L ittle interest or pleasure in doing things?Not at all F eeling down, depressed, or hopeless N ot at all T rouble falling or staying asleep, or sleeping too much N ot at all F eeling tired or having little energy N ot at all P oor appetite or overeating N ot at all F eeling bad about yourself or that you are a failure, or have let yourself or your family down N ot at all T rouble concentrating on things, such as reading the newspaper or watching television N ot at all M oving or speaking so slowly that other people could have noticed; or the opposite, being so fidgety or restless that you have been moving around a lot more than usual N ot at all T houghts that you would be better off or of hurting yourself in some way N ot at all T otal Score 0 S creening: Grady Suicide Severity Rating Scale (LF) D o you want to initiate with S creener form 1 . Wish to be : Have you wished you were or wished you could go to sleep and not wake up? N o 2 . Suicidal Thoughts: Have you actually had any thoughts of killing yourself? N o 6 . Suicide Behaviour: Have you ever done anything,started to do anything, or prepared to end your life? N o I nterpretation: L ow Risk C SSRS Interpretation and Follow Up Plan: CSSRS Interpretation and Follow Up Plan. CSSRS Interpretation and Follow Up Plan C SSRS Screen documented using SF Y es M oderate or High risk requires selection of a follow up plan C SSRS No/Low: intervention not needed at this time * ROS: B asic ROS: Admits W eakness. A dmits T ingling/Numbness. ? * Medical History: * Surgical History: p artial hysterectomy 2010abscess removal 04/2022 * Hospitalization/Major Diagno stic Procedure: a bscess- [facility] 2022hyo- [facility] 2009 * Family History: F ather: alive, diagnosed with Diabetes mellitus without mention of complication, type II or unspecified type, not stated as uncontrolled. M other: alive, diagnosed with Unspecified essential hypertension, Depression. C hildren: alive, ADHD, drug abuse, diagnosed with Bipolar disorder, unspecified, Depression. 1 son(s) , 1 daughter(s) - healthy. . 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 * Social History: P rimary Social History: L iving Arrangement L iving Arrangement: I ndependent Living I s this a supportive environment? Y es Alcohol Use A lcohol Use Frequency: N ever Illicit Substance Usage I llicit Substance Usage: N o Employment Status E mployment Status: U nemployed Leave of absence (unpaid) T obacco Use: T obacco Control (Standard) T obacco use: C urrent smoker M iscellaneous: M ethod of learning P referred method of learning: D iscussion P rescription # Filled Written Drug Label Qty Days Strength MME Prescriber Pharmacy Refill No. Refills State 09/23/2023 09/23/2023 ALPRAZolam 30.0 30 1 MG NA Catrina Thacker [facility] - [id number] [id number], [place], [place] NA 0 [place] 1 [id number] 08/22/2023 08/17/2023 ALPRAZolam 30.0 30 1 MG Catrina Corado [facility] - [id number] [facility] # [id number], [place], [place] NA 0 [place] 1 [id number] 07/22/2023 07/22/2023 ALPRAZolam 30.0 [address] [facility] [id number] [facility]. * Medications: T akingEstradiol 1 MG Tablet 1 tablet Orally Once a day Calcium 600 MG Tablet 1 tablet with meals Orally Twice a day Multivitamin - Tablet 1 tablet Orally Once a day Vitamin D 50 MCG (2000 UT) Tablet 1 tablet Orally Once a day traZODone HCl 150 MG Tablet 0.5-1 tablet as needed at bedtime Orally Once a day Viibryd 20 MG Tablet 1 tablet with food Orally Once a day Xanax 0.5 MG Tablet 0.5-1 tablet as needed Orally once a day Propranolol HCl 10 MG Tablet 1 tablet Orally twice daily As needed for anxietyTaking Estradiol 1 MG Tablet 1 tablet Orally Once a day Taking Calcium 600 MG Tablet 1 tablet with meals Orally Twice a day Taking Multivitamin - Tablet 1 tablet Orally Once a day Taking Vitamin D 50 MCG (2000 UT) Tablet 1 tablet Orally Once a day Taking traZODone HCl 150 MG Tablet 0.5-1 tablet as needed at bedtime Orally Once a day Taking Viibryd 20 MG Tablet 1 tablet with food Orally Once a day Taking Xanax 0.5 MG Tablet 0.5-1 tablet as needed Orally once a day Taking Propranolol HCl 10 MG Tablet 1 tablet Orally twice daily As needed for anxiety * Allergies: D oxycycline: nausea and vomitingCodeine: nausea and vomitingHydrocodone: nausea and vomitingoxyCODONE HCl: nausea and vomitingVicodin: nausea and vomitingno[Allergies Verified] Objective: * Vitals: I nitials: dt, Wt:185.6, Ht: 62, BMI:33.94, BP:120/78, HR:75, Oxygen sat %:98, RR:16, LMP: n/a, Pain scale:5. * Examination: G eneral Examination: GENERAL APPEARANCE: w ell developed, well nourished, in no acute distress. HEAD: n ormocephalic, atraumatic. NECK/THYROID: N O JVD. HEART: r egular rate and rhythm, no murmurs. LUNGS: r espirations regular and easy, clear to auscultation bilaterally. ABDOMEN: b owel sounds present, soft, nontender, nondistended. MUSCULOSKELETAL: n o joint deformity, swelling, redness, or warmth. EXTREMITIES: n o clubbing, cyanosis, or edema. PERIPHERAL PULSES: D P AND PT LLE 2+; RLE TRACE. NEUROLOGIC: c ranial nerves 2-12 grossly intact, alert and oriented, gait normal, normal muscle tone and strength, deep tendon reflexes 2+ symmetrical, sensory exam intact, no tremor, tic or rigidity, able to follows direction, speech is clear, face is symmetrical. Assessment: * Assessment: 1. P AD (peripheral artery disease) - I73.9 2 . T ingling of both feet - R20.2 (Primary) 3 . N icotine dependence, unspecified, uncomplicated - F17.200? Plan: * Treatment: 2. P AD (peripheral artery disease) I ana luisa: Arterial Doppler (Ordered for 02/15/2024) 3. N icotine dependence, unspecified, uncomplicated Start Varenicline Tartrate Tablet, 0.5 MG, 1 tablet after eating with a full glass of water DAILY FOR THREE DAYS, TWICE DAILY FOR 4 DAYS, THEN BEGIN 1 MG TABS, Orally, DIRECTED TAKE FOR 7 DAYS, THEN BEGIN 1 MG TABLETS, 7 days, 11, Refills 0; S tart Varenicline Tartrate Tablet, 1 MG, 1 tablet after eating with a full glass of water, Orally, Twice a day (BEGIN AFTER COMPLETING 0.5 MG TAB), 30 days, 60 Tablet, Refills 1. Clinical Notes: WARNED ABOUT POSSIBLE NIGHTMARES WITH CHANTIX. HAD SCREENING CT 11/2023. * Recommended Wellness and Pre vention Guidelines: * S tatus A lert L ast Done N ext Due A ction Taken N ONCOMPLIANT A lcohol use screening - 1 04/17/2023 - N ONCOMPLIANT A llergy List Verification - 1 04/17/2023 - N ONCOMPLIANT B reast cancer screening - 1 04/17/2023 - N ONCOMPLIANT C ervical cancer screening - 1 04/17/2023 - N ONCOMPLIANT C olorectal cancer screening - 1 04/17/2023 - N ONCOMPLIANT I nfluenza vaccine (over 50) - 1 04/17/2023 - * Procedure Codes: 3 008F BODY MASS INDEX [id number] MEDICAL NUTRITION, INDIV, [id number] BEHAV CHNG SMOKING 3-10 MIN * Preventive Medicine: Counseling: C are goal follow-up plan: BMI management provided Y es Above Normal BMI Follow-up L ifestyle education regarding diet S MOKING: Patient counselled on the dangers of tobacco use and urged to quit. . * Follow Up: 4 Weeks (Reason: AFTER ARTERIAL DOPPLER, NCV/EMG) * * R LINE LINEMAN Sign off status: Completed true * Provider: Malcom Torres Date: 04/17/2023 Generated for Feliz vizcaino/Syl/Anthonyitting on: 0 04/12/2024 01:50 PM POWER LINE LINEMAN History and Physical Notes * HPI (History of Present Illness) Category Sub-Category Detail Notes Category Not es Interim History Was hospitalized No Emergency room visit No Depression Screening PHQ-9 Little inte rest or pleasure in doing things: Not at all Feeling down, depressed, or hopeless: No t at all Trouble falling or staying asleep, or sl eeping too much: Not at all Feeling tired or having little energy: N ot at all Poor appetite or overeating: Not at all Feeling bad about yourself o r that you are a failure, or have let yourself or your family down: Not at all Trouble concentrating on thi ngs, such as reading the newspaper or watching television: Not at all Moving or speaking so slowly that other people could have noticed; or the opposite, being so fidgety or restless that you have been moving around a lot more than usual: Not at all Thoughts that you would be b annamarie off or of hurting yourself in some way: Not at all Total Score: 0 Screening Grady Suicide Sev erity Rating Scale (LF) Do you want to initiate with: Screener form 1. Wish to be : Have you wished you were or wished you could go to sleep and not wake up?: No 2. Suicidal Thoughts: Have you actually had any thoughts of killing yourself?: No 6. Suicide Behavior Question: Have you ever done anything,started to do anything, or prepared to end your life?: No Interpretation:: Low Risk Do Not Use CSSRS Interpretation and Follow Up Plan CSSRS Interpretation and Follow Up Plan CSSRS Screen documented using SF: Yes Moderate or High risk requir es selection of a follow up plan: CSSRS No/Low: intervention not needed at this time Examination Category Sub-Category Detail Notes Category Not es General Examination GENERAL APPEARANCE: well dev eloped, well nourished, in no acute distress HEAD: normocephalic, atrau matic NECK/THYROID: NO JVD HEART: regular rate and rhy thm, no murmurs LUNGS: respirations regular and easy, clear to auscultation bilaterally ABDOMEN: bowel sounds present , soft, nontender, nondistended NEUROLOGIC: cranial nerves 2-12 grossly intact, alert and oriented, gait normal, normal muscle tone and strength, deep tendon reflexes 2+ symmetrical, sensory exam intact, no tremor, tic or rigidity, able to follows direction, speech is clear, face is symmetrical EXTREMITIES: no clubbing, cyanosi s, or edema PERIPHERAL PULSES: DP AND PT LLE 2+; RL E TRACE MUSCULOSKELETAL: no joint deformity, swelling, redness, or warmth
--- OUTSIDE RECORDS SUMMARY | 2024-04-12 13:50 | XMS_ITS ---
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 Role Phone Cody Torres Primary Care Provider Catrina Thacker Unavailable [phone] Rome Borrero Unavailable [phone] REASON FOR VISIT 4 week F/U Medications Medication SIG (Take, Route, Frequency, Duration) Notes Start Date End Date Status Estradiol 1 MG 1 tablet Orally Once a day Active Calcium 600 MG 1 tablet with meals Orally Twice a day Active Vitamin D 50 MCG (1999) 1 tablet Orally Once a day Active Multivitamin - 1 tablet Orally Once a day Active Propranolol HCl 10 MG 1 tablet Orally twice daily for 30 days As needed for anxiety Active Varenicline Tartrate 1 MG 1 tablet after eating with a full glass of water Orally Twice a day for 30 days (BEGIN AFTER COMPLETING 0.5 MG TAB) 02/23/2024 Not-Taking traZODone HCl 100 MG 1.5-2 tablet at bed time as needed for sleep Orally for 30 days Active Xanax 0.5 MG 0.5-1 tablet as need ed Orally once a day for 30 days 03/08/2024 Active Viibryd 20 MG 1 tablet with food Orally Once a day for 30 days Active Social History Sex Assigned At : Social History Observation Description Sex Assigned At Female Section Notes: Prescription # Filled Written Drug Label Qty Days Strength MME Prescriber Pharmacy Refill No. Refills State 09/23/2023 09/23/2023 ALPRAZolam 30.0 30 1 MG NA Catrina Thacker [facility] [id number] [id number], [place], [place] NA 0 [place] 1 [id number] 08/22/2023 08/17/2023 ALPRAZolam 30.0 30 1 MG NA Catrina Thacker [facility] - [id number] [id number], [place], [place] NA 0 [place] 1 [id number] 07/22/2023 07/22/2023 ALPRAZolam 30.0 30 1 MG NA Catrina Thacker [facility] - [id number] [facility] Vital Signs Weight 185 lbs 03/08/2024 Height 62 in 03/08/2024 BMI 33.83 kg/m2 03/08/2024 Encounters Encounter Location Date Provider Diagnosis [address] [place] [address] 03/08/2024 Rome Borrero Anxiety F41.9 ; Depression F32.9 ; Insomnia G47.00 ; Benzodiazepine dependence F13.20 and Nicotine dependence, unspecified, uncomplicated F17.200 Assessments Encounter Date Diagnosis (ICD Code) Assessment Notes Treatment Notes Treatment Clinical Notes Section Notes 03/08/2024 Anxiety (ICD-10 - F41.9) Duration (acute/chronic) , stability (controlled/unc ontrolled): Chronic, improved with recent medication changes, patient has been able to cut back to 0.5 tablet alprazolam once nightly with recent medication adjustments BUT unable to stop completely, having to take to help with sleep, still has a goal of complete discontinuation , see HPI Current medications/eff icacy: Improvement reported Previous medication trials: Prozac, Wellbutrin, Zoloft, Effexor (Ineffective), Duloxetine, Vistaril ( sluggish ), vilazadone, alprazolam, trazodone Current/previou s therapies: Follows up with therapy a few times monthly Examination as documented - see pertinent aspects of office visit documentation. Pertinent diagnostics: LABS COLLECTED IN 10/2023 - MONITORED BY PCP RECOMMENDATIONS : DECREASE alprazolam as prescribed/disc ussed - educated patient/froilan n on adverse effects, risks and benefits, as well as alternative treatments INCREASE trazodone as needed/discusse d/prescribed to assist with sleep - educated patient/froilan n on adverse effects, risks and benefits, as well as alternative treatments Continue other medications as prescribed - educated patient/froilan n on adverse effects, risks and benefits, as well as alternative treatments Consume well balanced diet, preferably low in saturated fats (solid at room temperature, such as butter, margarine, Crisco, etc) and low in sodium (<2,000mg per day). Consume plenty of fruits/vegetabl es, healthy grains/whole grains, unsaturated/hea lthy fats (liquid at room temperature, such as olive oil, sunflower seed oil, canola, vegetable, etc.). Exercise regularly - Develop an exercise routine. 30 minutes of moderate exercise (walking at a brisk pace) 5 times per week is recommended. You should work hard enough to cause a sweat but still be able to talk with others while exercising. Exercise improves overall health - improves blood pressure and blood sugar, helps control weight, reduces stress, and improves mood. Practice stress reduction techniques, such as guided imagery, journaling, aromatherapy, acupuncture/acu pressure, deep breathing, etc. Practice healthy sleep hygiene - maintain regular routine, no caffeine after 1PM, no exercise 1-2 hours prior to bedtime, keep bedroom dark and cool, no TV or electronics while in bed. Consider melatonin as needed. Consider cognitive behavioral therapy for insomnia (CBT-I). Consider/Contin ue therapy. Consider substance cessation therapy as needed - contact office if desiring medication assisted therapy. Manage co-morbid conditions. Continue monitoring symptoms - report persistent or worsening/massiel rning symptoms to the office or go to the ER. For mental health CRISIS, please reach out to [phone] (National Suicide and Crisis Lifeline), 911, go to the emergency department, or contact the [facility] Crisis Unit/Team. Follow up as scheduled in 4 weeks or sooner if necessary. Follow up with PCP and/or other specialists as advised. NEXT STEP: Consider switching to propranolol ER. Consider increasing vilazodone as needed. Consider tapering alprazolam when appropriate/pat ient is ready. 03/08/2024 Depression (ICD-10 - F32.9) Duration (acute/chronic) , stability (controlled/unc ontrolled): Chronic, improving Current medications/eff icacy: Improvement reported, room for further improvement Previous medication trials: Prozac, Wellbutrin, Zoloft, Effexor (Ineffective), Duloxetine, Vistaril ( sluggish ), vilazadone, alprazolam, trazodone Current/previou s therapies: Follows up with therapy a few times monthly Examination as documented - see pertinent aspects of office visit documentation. Pertinent diagnostics: LABS COLLECTED IN 10/2023 - MONITORED BY PCP RECOMMENDATIONS : Continue/modify medications as prescribed - educated patient/froilan n on adverse effects, risks and benefits, as well as alternative treatments Consume well balanced diet, preferably low in saturated fats (solid at room temperature, such as butter, margarine, Crisco, etc) and low in sodium (<2,000mg per day). Consume plenty of fruits/vegetabl es, healthy grains/whole grains, unsaturated/hea lthy fats (liquid at room temperature, such as olive oil, sunflower seed oil, canola, vegetable, etc.). Exercise regularly - Develop an exercise routine. 30 minutes of moderate exercise (walking at a brisk pace) 5 times per week is recommended. You should work hard enough to cause a sweat but still be able to talk with others while exercising. Exercise improves overall health - improves blood pressure and blood sugar, helps control weight, reduces stress, and improves mood. Practice stress reduction techniques, such as guided imagery, journaling, aromatherapy, acupuncture/acu pressure, deep breathing, etc. Practice healthy sleep hygiene - maintain regular routine, no caffeine after 1PM, no exercise 1-2 hours prior to bedtime, keep bedroom dark and cool, no TV or electronics while in bed. Consider melatonin as needed. Consider cognitive behavioral therapy for insomnia (CBT-I). Consider/Contin ue therapy. Consider substance cessation therapy as needed - contact office if desiring medication assisted therapy. Manage co-morbid conditions. Continue monitoring symptoms - report persistent or worsening/massiel rning symptoms to the office or go to the ER. For mental health CRISIS, please reach out to [phone] (National Suicide and Crisis Lifeline), 911, go to the emergency department, or contact the [facility] Crisis Unit/Team. Follow up as scheduled in 4 weeks or sooner if necessary. Follow up with PCP and/or other specialists as advised. NEXT STEP: Consider increasing vilazadone. 03/08/2024 Insomnia (ICD-10 - G47.00) Duration (acute/chronic) , stability (controlled/unc ontrolled): Chronic, well controlled on current medication regimen - patient able to decrease alprazolam to 0.5 tablet at bedtime with recent medication adjustments BUT unable to stop completely, having to take to help with sleep, still has a goal of complete discontinuation , see HPI Current medications/eff icacy: Yes Previous medication trials: Vistaril ( sluggish ), alprazolam, trazodone Current/previou s therapies: Follows up with therapy a few times monthly Examination as documented - see pertinent aspects of office visit documentation. Pertinent diagnostics: LABS COLLECTED IN 10/2023 - MONITORED BY PCP RECOMMENDATIONS : DECREASE alprazolam as prescribed/disc ussed - educated patient/froilan n on adverse effects, risks and benefits, as well as alternative treatments INCREASE trazodone as needed/discusse d/prescribed to assist with sleep - educated patient/froilan n on adverse effects, risks and benefits, as well as alternative treatments Continue/modify other medications as prescribed - educated patient/froilan n on adverse effects, risks and benefits, as well as alternative treatments Consume well balanced diet, preferably low in saturated fats (solid at room temperature, such as butter, margarine, Crisco, etc) and low in sodium (<2,000mg per day). Consume plenty of fruits/vegetabl es, healthy grains/whole grains, unsaturated/hea lthy fats (liquid at room temperature, such as olive oil, sunflower seed oil, canola, vegetable, etc.). Exercise regularly - Develop an exercise routine. 30 minutes of moderate exercise (walking at a brisk pace) 5 times per week is recommended. You should work hard enough to cause a sweat but still be able to talk with others while exercising. Exercise improves overall health - improves blood pressure and blood sugar, helps control weight, reduces stress, and improves mood. Practice stress reduction techniques, such as guided imagery, journaling, aromatherapy, acupuncture/acu pressure, deep breathing, etc. Practice healthy sleep hygiene - maintain regular routine, no caffeine after 1PM, no exercise 1-2 hours prior to bedtime, keep bedroom dark and cool, no TV or electronics while in bed. Consider melatonin as needed. Consider cognitive behavioral therapy for insomnia (CBT-I). Consider/Contin ue therapy. Consider substance cessation therapy as needed - contact office if desiring medication assisted therapy. Manage co-morbid conditions. Continue monitoring symptoms - report persistent or worsening/massiel rning symptoms to the office or go to the ER. For mental health CRISIS, please reach out to [phone] ([place] Suicide and Crisis Lifeline), 911, go to the emergency department, or contact the [facility] Crisis Unit/Team. Follow up as scheduled in 4 weeks or sooner if necessary. Follow up with PCP and/or other specialists as advised. NEXT STEP: Consider increasing trazodone as needed. Consider discussing further tapering of alprazolam/disc ontinuation. 03/08/2024 Benzodiazepine dependence (ICD-10 - F13.20) See above assessment and plans 03/08/2024 Nicotine dependence, unspecified, uncomplicated (ICD-10 - F17.200) Duration (acute/chronic) , stability (controlled/unc ontrolled): Chronic, Smoking daily, has been smoking for a while - working on cutting back Current medications/eff icacy: Previous medication trials: Wellbutrin (nightmares), Chantix (nightmares), nicotine patches (unable to keep on), nicotine lozenges (GI upset secondary to taste) RECOMMENDATIONS : Continue substance cessation therapy/efforts as needed - contact office if desiring medication assisted therapy. Manage co-morbid conditions. Continue monitoring symptoms - report persistent or worsening/massiel rning symptoms to the office or go to the ER. For mental health CRISIS, please reach out to [phone] ([place] Suicide and Crisis Lifeline), 911, go to the emergency department, or contact the [facility] Crisis Unit/Team. Follow up as scheduled or sooner if necessary. Follow up with PCP and/or other specialists as advised. NEXT STEP: Consider nicotine nasal spray as needed if patient agreeable to trying. Plan Of Treatment Medication Medication Name Sig Start Date Stop Date Notes Propranolol HCl 10 MG 1 tablet Orally tw ice daily for 30 days traZODone HCl 100 MG 1.5-2 tablet at bed time as needed for sleep Orally for 30 days Xanax 0.5 MG 0.5-1 tablet as need ed Orally once a day for 30 days 03/08/2024 Viibryd 20 MG 1 tablet with food O rally Once a day for 30 days Treatment Notes Assessment Notes Anxiety Duration (acute/chronic), stability (controlled/uncontrolled): Chronic, improved with recent medication changes, patient has been able to cut back to 0.5 tablet alprazolam once nightly with recent medication adjustments BUT unable to stop completely, having to take to help with sleep, still has a goal of complete discontinuation, see HPI Current medications/efficacy: Improvement reported Previous medication trials: Prozac, Wellbutrin, Zoloft, Effexor (Ineffective), Duloxetine, Vistaril ( sluggish ), vilazadone, alprazolam, trazodone Current/previous therapies: Follows up with therapy a few times monthly Examination as documented - see pertinent aspects of office visit documentation. Pertinent diagnostics: LABS COLLECTED IN 10/2023 - MONITORED BY PCP RECOMMENDATIONS: DECREASE alprazolam as prescribed/discussed - educated patient/guardian on adverse effects, risks and benefits, as well as alternative treatments INCREASE trazodone as needed/discussed/prescribed to assist with sleep - educated patient/guardian on adverse effects, risks and benefits, as well as alternative treatments Continue other medications as prescribed - educated patient/guardian on adverse effects, risks and benefits, as well as alternative treatments Consume well balanced diet, preferably low in saturated fats (solid at room temperature, such as butter, margarine, Crisco, etc) and low in sodium (<2,000mg per day). Consume plenty of fruits/vegetables, healthy grains/whole grains, unsaturated/healthy fats (liquid at room temperature, such as olive oil, sunflower seed oil, canola, vegetable, etc.). Exercise regularly - Develop an exercise routine. 30 minutes of moderate exercise (walking at a brisk pace) 5 times per week is recommended. You should work hard enough to cause a sweat but still be able to talk with others while exercising. Exercise improves overall health - improves blood pressure and blood sugar, helps control weight, reduces stress, and improves mood. Practice stress reduction techniques, such as guided imagery, journaling, aromatherapy, acupuncture/acupressure, deep breathing, etc. Practice healthy sleep hygiene - maintain regular routine, no caffeine after 1PM, no exercise 1-2 hours prior to bedtime, keep bedroom dark and cool, no TV or electronics while in bed. Consider melatonin as needed. Consider cognitive behavioral therapy for insomnia (CBT-I). Consider/Continue therapy. Consider substance cessation therapy as needed - contact office if desiring medication assisted therapy. Manage co-morbid conditions. Continue monitoring symptoms - report persistent or worsening/concerning symptoms to the office or go to the ER. For mental health CRISIS, please reach out to [phone] (National Suicide and Crisis Lifeline), 911, go to the emergency department, or contact the [facility] Crisis Unit/Team. Follow up as scheduled in 4 weeks or sooner if necessary. Follow up with PCP and/or other specialists as advised. NEXT STEP: Consider switching to propranolol ER. Consider increasing vilazodone as needed. Consider tapering alprazolam when appropriate/patient is ready. Depression Duration (acute/chronic), stability (controlled/uncontrolled): Chronic, improving Current medications/efficacy: Improvement reported, room for further improvement Previous medication trials: Prozac, Wellbutrin, Zoloft, Effexor (Ineffective), Duloxetine, Vistaril ( sluggish ), vilazadone, alprazolam, trazodone Current/previous therapies: Follows up with therapy a few times monthly Examination as documented - see pertinent aspects of office visit documentation. Pertinent diagnostics: LABS COLLECTED IN 10/2023 - MONITORED BY PCP RECOMMENDATIONS: Continue/modify medications as prescribed - educated patient/guardian on adverse effects, risks and benefits, as well as alternative treatments Consume well balanced diet, preferably low in saturated fats (solid at room temperature, such as butter, margarine, Crisco, etc) and low in sodium (<2,000mg per day). Consume plenty of fruits/vegetables, healthy grains/whole grains, unsaturated/healthy fats (liquid at room temperature, such as olive oil, sunflower seed oil, canola, vegetable, etc.). Exercise regularly - Develop an exercise routine. 30 minutes of moderate exercise (walking at a brisk pace) 5 times per week is recommended. You should work hard enough to cause a sweat but still be able to talk with others while exercising. Exercise improves overall health - improves blood pressure and blood sugar, helps control weight, reduces stress, and improves mood. Practice stress reduction techniques, such as guided imagery, journaling, aromatherapy, acupuncture/acupressure, deep breathing, etc. Practice healthy sleep hygiene - maintain regular routine, no caffeine after 1PM, no exercise 1-2 hours prior to bedtime, keep bedroom dark and cool, no TV or electronics while in bed. Consider melatonin as needed. Consider cognitive behavioral therapy for insomnia (CBT-I). Consider/Continue therapy. Consider substance cessation therapy as needed - contact office if desiring medication assisted therapy. Manage co-morbid conditions. Continue monitoring symptoms - report persistent or worsening/concerning symptoms to the office or go to the ER. For mental health CRISIS, please reach out to [phone] (National Suicide and Crisis Lifeline), 911, go to the emergency department, or contact the [facility] Crisis Unit/Team. Follow up as scheduled in 4 weeks or sooner if necessary. Follow up with PCP and/or other specialists as advised. NEXT STEP: Consider increasing vilazadone. Insomnia Duration (acute/chronic), stability (controlled/uncontrolled): Chronic, well controlled on current medication regimen - patient able to decrease alprazolam to 0.5 tablet at bedtime with recent medication adjustments BUT unable to stop completely, having to take to help with sleep, still has a goal of complete discontinuation, see HPI Current medications/efficacy: Yes Previous medication trials: Vistaril ( sluggish ), alprazolam, trazodone Current/previous therapies: Follows up with therapy a few times monthly Examination as documented - see pertinent aspects of office visit documentation. Pertinent diagnostics: LABS COLLECTED IN 10/2023 - MONITORED BY PCP RECOMMENDATIONS: DECREASE alprazolam as prescribed/discussed - educated patient/guardian on adverse effects, risks and benefits, as well as alternative treatments INCREASE trazodone as needed/discussed/prescribed to assist with sleep - educated patient/guardian on adverse effects, risks and benefits, as well as alternative treatments Continue/modify other medications as prescribed - educated patient/guardian on adverse effects, risks and benefits, as well as alternative treatments Consume well balanced diet, preferably low in saturated fats (solid at room temperature, such as butter, margarine, Crisco, etc) and low in sodium (<2,000mg per day). Consume plenty of fruits/vegetables, healthy grains/whole grains, unsaturated/healthy fats (liquid at room temperature, such as olive oil, sunflower seed oil, canola, vegetable, etc.). Exercise regularly - Develop an exercise routine. 30 minutes of moderate exercise (walking at a brisk pace) 5 times per week is recommended. You should work hard enough to cause a sweat but still be able to talk with others while exercising. Exercise improves overall health - improves blood pressure and blood sugar, helps control weight, reduces stress, and improves mood. Practice stress reduction techniques, such as guided imagery, journaling, aromatherapy, acupuncture/acupressure, deep breathing, etc. Practice healthy sleep hygiene - maintain regular routine, no caffeine after 1PM, no exercise 1-2 hours prior to bedtime, keep bedroom dark and cool, no TV or electronics while in bed. Consider melatonin as needed. Consider cognitive behavioral therapy for insomnia (CBT-I). Consider/Continue therapy. Consider substance cessation therapy as needed - contact office if desiring medication assisted therapy. Manage co-morbid conditions. Continue monitoring symptoms - report persistent or worsening/concerning symptoms to the office or go to the ER. For mental health CRISIS, please reach out to [phone] ([employer] Suicide and Crisis Lifeline), 911, go to the emergency department, or contact the [facility] Crisis Unit/Team. Follow up as scheduled in 4 weeks or sooner if necessary. Follow up with PCP and/or other specialists as advised. NEXT STEP: Consider increasing trazodone as needed. Consider discussing further tapering of alprazolam/discontinuation. Benzodiazepine dependence See above asse ssment and plans Nicotine dependence, unspeci fied, uncomplicated Duration (acute/chronic), stability (controlled/uncontrolled): Chronic, Smoking daily, has been smoking for a while - working on cutting back Current medications/efficacy: Previous medication trials: Wellbutrin (nightmares), Chantix (nightmares), nicotine patches (unable to keep on), nicotine lozenges (GI upset secondary to taste) RECOMMENDATIONS: Continue substance cessation therapy/efforts as needed - contact office if desiring medication assisted therapy. Manage co-morbid conditions. Continue monitoring symptoms - report persistent or worsening/concerning symptoms to the office or go to the ER. For mental health CRISIS, please reach out to [phone] ([employer] Suicide and Crisis Lifeline), 911, go to the emergency department, or contact the [facility] Crisis Unit/Team. Follow up as scheduled or sooner if necessary. Follow up with PCP and/or other specialists as advised. NEXT STEP: Consider nicotine nasal spray as needed if patient agreeable to trying. Next Appt Details Follow Up: 4 Weeks - TELEPHO NE, Reason: 4 week psych follow up/med refill Progress Notes * Loly DILLON:1970 ( 53 yo F)Acc No.[id number]:03/08/2024 Patient: Carmen CORDOBA Provider: Roland Borrero APN :1970 A ge:53 Y S ex:Female Date:03/08/2024 Address:[address] [place], [place] [id number] Pcp:Cody Torres Subjective: * Chief Complaints: * 4 week F/U * HPI: S ummary: History of Presenting Illness: Patient is presenting for 4 week follow up. Patient attempted to stop alprazolam 0.5mg as previously discussed Reports she did this for 4 nights then restarted due to not being able to sleep Reports she is doing well on all other medications as currently prescribed Still has a goal of completely stopping alprazolam Patient agreeable to decreasing alprazolam to 0.25mg once nightly. Agreeable to continuing other medications as currently prescribed - agreeable to potentially increasing trazodone to 200mg at bedtime if necessary. Agreeable to following up in 4 weeks, sooner if necessary. - - - - - - - - - - - - - - - - - - - - - - - - - - - - - - - - - - - - - - - - - - - - - - - - - - - - - - - - - - - - - - - - - - - - - - - - - - - - - - - PERTINENT HPI DETAILS FROM PREVIOUS APPOINTMENT: Patient is presenting for 4 week follow up. 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 Agreeable to trying not to take 0.5mg alprazolam at bedtime - if necessary, patient informed she can crush 0.5mg (1/2 tablet) and take 1/2 of the dust/powder (0.25mg) with food as needed. Agreeable to following up in 4 weeks, sooner if necessary. - - - - - - - - - - - - - - - - - - - - - - - - - - - - - - - - - - - - - - - - - - - - - - - - - - - - - - - - - - - - - - - - - - - - - - - - - - - - - - - - - - -Medications Effectiveness: Symptoms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
--- OUTSIDE RECORDS SUMMARY | 2024-04-12 13:50 | XMS_ITS | Clinical Summary ---
Author Organization [facility] Address [facility] [place] [address] Care Team Providers Care Color Corrector Name Role Phone Unavailable Primary Care Provider Unavailabl e Social History Tobacco Use Types Packs/Day Years Used Date Smoking Tobacco: Never Assessed Comments Unknown Sex and Gender Information Value Date Recorded Sex Assigned at Not on file Legal Sex Female 4:04 PM CDT Gender Identity Not on file Sexual Orientation Not on file Plan of Treatment Health Maintenance Due Date Last Done Comments Cervical Cancer Screening Pa p Smear (Age 30 to 64) Every 3 Years 1969 Colorectal Cancer Screening Colonoscopy (10 Years) 1969 Annual Physical 1972 Hepatitis C 07/01/1987 DTaP, Tdap and Td Vaccines ( 1 - Tdap) 1988 Hepatitis B Vaccines (1 of 3 - 19+ 3-dose series) 1988 Cervical Cancer Screening Pa p with HPV Testing (Age 30 to 64) Every 5 Years 07/01/1999 Cervical Cancer Screening with HPV 07/01/1999 Mammogram Screening 2009 Zoster Vaccines (1 of 2) 07/01/2019 COVID-19 Vaccine (2023-2 5 season) 2023 Influenza Adult (#1) 2023 Meningococcal B Vaccine Aged Out No l onger eligible based on patient's age to complete this topic Meningococcal Vaccine Aged Out No monserrat anastasia eligible based on patient's age to complete this topic Pneumococcal Vaccine: Pediat rics (0 to 5 Years) and At-Risk Patients (6 to 64 Years) Aged Out No longer eligible b ased on patient's age to complete this topic RSV Immunizations Under 20 Months Aged Out No longer eligible based on patient's age to complete this topic
--- OUTSIDE RECORDS SUMMARY | 2024-04-12 13:50 | XMS_ITS | Clinical Summary ---
Author Organization [facility] Address [address] [place] [address] Care Team Providers Care Skirt Maker Name Role Phone Cody Piña Primary Care Provider [phone] Source Comments [facility],non-owned Affiliates and Associated Physician Practices is amultiple site organization consisting of ambulatory clinics and hospital sitesin [place], [place], [place] and [place]. This disclosure is being madepursuant to the Care Everywhere program and may not contain all information available regarding this patient. Last updated 17.[facility] Allergies Active Allergy Reactions Criticality Noted Date Comments Doxycycline 12/21/2015 Hydrocodone-Acetaminophen Vomiting Low 02/19/2022 Oxycodone Vomiting Low 02/19/2022 Tramadol 12/21/2015 Medications * Be aware that medications may not be up to date on this document. Alwaysverify current medications with the patient. Medication Sig Dispensed Refills Start Date End Date Status Multiple Vitamins-Minerals (MULTIVITAMIN ADULT EXTRA C PO) Take 1 tablet by mouth once daily Active Cholecalciferol 50 MCG (1999 UT) Take 2,000 Units by mouth once daily Active estradiol (Estrace) 1 MG tablet Take 1 (one) tablet by mouth once daily 01/27/2022 Active metoclopramide (Reglan) 10 MG tablet TAKE 1 TABLET BY MOUTH 1-3 TIMES A DAY NEEDED FOR BLOATING 05/21/2022 Active traZODone (Desyrel) 100 MG tablet Take 1 (one) tablet by mouth 05/15/2022 Active ALPRAZolam (Xanax) 1 MG tablet Take 1 (one) tablet by mouth 3 times daily as needed 02/07/2022 Active clindamycin (Cleocin) 1 % lotionIndications:Lolis terial folliculitis Apply to affected area on the trunk and extremities 1-2 times daily. 30 day supply. 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 Abscess 05/20/2022 10/21/2022 Blepharitis of left lower eyelid 02/19/2022 10/21/2022 Overview (10/21/2022): Added automatically from request for surgery [id number] Immunizations Name Administration Dates Next Due FLU VACCINE QUAD [id number] PF ID 12/21/2015 Social History Tobacco Use Types Packs/Day Years Used Date Smoking Tobacco: Every Day Cigarettes Smokeless Tobacco: Never Tobacco Cessation:Ready to Q uit: Not Asked Sex and Gender Information Value Date Recorded Sex Assigned at Not on file Gender Identity Not on file Sexual Orientation Not on file Plan of Treatment Upcoming Encounters Date Type Department Care Team (Late st Contact Info) Description 04/22/2024 1:00 PM ANCHOR 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 Office Visit [facility] - Dermatology [address] [place] [address], [facility] [address] Rocael Hernandez MD [address] [place] [address] [place] [address] Health Maintenance Due Date Last Done Comments COLOGUARD (AGES 45-75) - COL ON CA SCREENING 1969 COLON MONITORING 1969 COLONOSCOPY - COLON CA SCREENING 1969 CT COLONOGRAPHY - COLON CA SCREENING 1969 Colorectal Cancer Screening 1969 FIT - COLON CA SCREENING 1969 FLEX SIG - COLON CA SCREENING 1969 LIPID TESTING 1969 MAMMOGRAM 1969 PAP SMEAR 1969 HIV SCREENING 1984 HEPATITIS C SCREENING 06/26/1987 DTAP/TDAP/TD VACCINES (1 - Tdap) 1988 HEPATITIS B VACCINE (1 of 3 - 19+ 3-dose series) 1988 PNEUMOCOCCAL VACCINE 50+ (1 of 2 - PCV) 1988 PNEUMOCOCCAL VACCINE (1 of 2 - PCV) 1988 ZOSTER VACCINE (1 of 2) 07/01/2019 COVID-19 VACCINE (1 - 2023-2 5 season) 2023 INFLUENZA VACCINE (#1) 2023 2, 12/21/2015 DEPRESSION SCREENING 03/02/2024 HIB VACCINE Aged Out No longer eligi ble based on patient's age to complete this topic HPV VACCINE Aged Out No longer eligi ble based on patient's age to complete this topic MENINGOCOCCAL (Group B) VACCINE Aged Out No longer eligible b ased on patient's age to complete this topic MENINGOCOCCAL VACCINE Aged Out No monserrat anastasia eligible based on patient's age to complete this topic Care Teams Skirt Maker Relationship Specialty Start Date End Date Cody Piña [address] [place] [address] [place] [phone] PCP - General 10/20/23
--- OUTSIDE RECORDS SUMMARY | 2024-04-12 13:50 | XMS_ITS | Encounter Summary ---
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 Historical Provider [facility] HERMILO UREÑA Final Result documented in this encounter Visit Diagnoses Not on filedocumented in this encounter Additional Health Concerns Infection Onset Date Last Indicated Resolved Time COVID: Suspected 05/20/2022 05/20/2022 05/20/2022 1:13 PM CDT documented as of this encounter Care Teams Sheet Rock Applicator Relationship Specialty Start Date End Date Rustam Cool MD [address] [place] [address] PCP - General 02/05/19 documented as of this encounter
--- OUTSIDE RECORDS SUMMARY | 2024-04-12 13:50 | XMS_ITS | Encounter Summary ---
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 us Historical Provider Final Res ult documented in this encounter Visit Diagnoses Not on filedocumented in this encounter Additional Health Concerns Infection Onset Date Last Indicated Resolved Time COVID: Suspected 05/20/2022 05/20/2022 05/20/2022 1:13 PM CDT documented as of this encounter Care Teams Cdl Dedicated Truck Driver Relationship Specialty Start Date End Date Rustam Cool MD [address] [place] [address] PCP - General 02/05/19 documented as of this encounter
--- OUTSIDE RECORDS SUMMARY | 2024-04-12 13:50 | XMS_ITS | Encounter Summary ---
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 Historical Provider [facility] HERMILO UREÑA Final Result documented in this encounter Visit Diagnoses Not on filedocumented in this encounter Additional Health Concerns Infection Onset Date Last Indicated Resolved Time COVID: Suspected 05/20/2022 05/20/2022 05/20/2022 1:13 PM CDT documented as of this encounter Care Teams Historic Site Administrator Relationship Specialty Start Date End Date Rustam Cool MD [address] [place] [address] PCP - General 02/05/19 documented as of this encounter
--- OUTSIDE RECORDS SUMMARY | 2024-04-12 13:50 | XMS_ITS | Referral Summary ---
Author Organization [facility] Address [address] [place] [address] Care Team Providers Care Ski Patrol Officer Name Role Phone Cody Piña Primary Care Provider [phone] Source Comments [facility] [employer],non-owned Affiliates and Associated Physician Practices is amultiple site organization consisting of ambulatory clinics and hospital sitesin [place], [place], [place] and [place]. This disclosure is being madepursuant to the Care Everywhere program and may not contain all information available regarding this patient. Last updated 17.[facility] [employer] Allergies Active Allergy Reactions Criticality Noted Date [...] (10/21/2022): Added automatically from request for surgery [id number] Immunizations Name Administration Dates Next Due FLU [...] st Contact Info) Description 04/22/2024 1:00 PM PARTS IDENTIFIER Office Visit [facility] - Dermatology [address] [place] [address], [facility] [place] [address] Rocael Hernandez MD [address] [place] [address] [place] [address] Care Teams Ski Patrol Officer Relationship Specialty Start Date End Date Cody Piña [address] [place] [address] PCP - General 10/20/23
--- OUTSIDE RECORDS SUMMARY | 2024-04-12 13:50 | XMS_ITS | Referral Summary ---
Author Organization [address] Address [address] [place] [address] Care Team Providers Care Digital Marketing Apprentice Name Role Phone Rustam Cool MD Primary Care Provider [phone] Allergies Active Allergy Reactions Criticality Noted Date [...] (02/19/2022): Added automatically from request for surgery [id number] Immunizations Name Administration Dates Next Due Influenza, Unspecified 12/30/2021 Social History Tobacco Use Types Packs/Day Years Used Date Smoking Tobacco: Every Day Cigarettes 1 25 Tobacco Cessation:Ready to Q uit: Not Asked; [...] How often do you attend chur or muslim services? 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
--- OUTSIDE RECORDS SUMMARY | 2024-04-12 13:50 | XMS_ITS | Clinical Summary ---
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 Gender Identity Not on file Sexual Orientation Not on file Plan of Treatment Health Maintenance Due Date Last Done Comments Hepatitis C Virus (HCV) Screening 1969 TdaP Immunization 1969 Hepatitis B Immunization (1 of 3 - 19+ 3-dose series) 1988 Pap Smear 1990 Cervical Cancer Screening (CCS) 07/01/1999 HPV/Cotest 07/01/1999 Colonoscopy 2014 Colorectal Cancer Screening 2014 Cologuard 07/01/2019 Immunochemical Fecal Occult Blood 07/01/2019 Mammogram 07/01/2019 Pneumococcal Immunization (5 0+ years) (1 of 1 - PCV) 07/01/2019 Zoster Immunization (1 of 2) 07/01/2019 Influenza Immunization (#1) 2023 SARS-COV-2 Immunization ( - 2023-25 season) 2023 Respiratory Syncytial Virus (RSV) Immunization (Adult) (1 - 1-dose 75+ series) 2044 Meningococcal Immunization (ACWY) Aged Out No longer eligible based on patient's age to complete this topic Pneumococcal Immunization Combined Aged Out No longer eligible based on patient's age to complete this topic Rotavirus Immunization Aged Out No lo nger eligible based on patient's age to complete this topic
== END 2024-04-12 13:02 | disposition home or self-care (01) ==
LOC: ANHNEURO 13:03
PROVIDERS: PCP Internal Medicine; Visit Provider Internal Medicine
DX: R20.2 Paresthesia of skin (principal)
CPT/HCPCS: 95886; 95910

== ENCOUNTER 2024-05-27 14:07 | Outpatient (CLI) | payer SELFPAY ==
--- NOTE | ~2024-05-27 | US_ITS ---
EXAMINATION: US art doppler w press LE BI DATE: 05/27/2024 16:16 CDT INDICATION: Peripheral arterial disease TECHNIQUE: Segmental pressures and plethysmographic and Doppler waveforms of the brachial and lower e xtremity arteries were obtained. COMPARISON: None. FINDINGS: Right and left brachial artery pressures of 126 mm Hg and 111 mm Hg, respectively, are concordant (no rmal difference <= 30 mmHg). The right high-thigh pressure index is 1.28 (normal > 1.2). The right ankle-brachial index (RICKI) is 1 .22 (normal >= 0.9-1.0). The right great toe-brachial index (TBI) is 1.64 (normal >= 0.60). The right lower extremity segmental pressure gradients are normal (normal gradients <= 20-30 mmHg between dewayne cent levels on the same leg or the same levels on the two legs). The left high-thigh pressure index is 1.35. The left RICKI is 1.19. The left TBI is 0.94. The left lowe r extremity segmental pressure gradients are normal. IMPRESSION: 1. Normal bilateral ankle-brachial indices. Reviewed, dictated and finalized at location A.
--- OUTSIDE RECORDS SUMMARY | 2024-05-27 14:12 | XMS_ITS | Clinical Summary ---
Author Organization [facility] Address [facility] [place] [address] Care Team Providers Care Microsoft Windows Engineer Name Role Phone Unavailable Primary Care Provider [...]
--- OUTSIDE RECORDS SUMMARY | 2024-05-27 14:12 | XMS_ITS ---
Author Organization [facility] Address [address] [place] [address] Care Team Providers Care School Laboratory Technician Name Role Phone Cody Torres Primary Care Provider Catrina Thacker Unavailable [phone] Borre[place] Unavailable [phone] REASON FOR VISIT 1 Month Psych F/U & Med Refill Medications Medication SIG (Take, Route, Frequency, Duration) Notes Start Date End Date Status Xanax 0.5 MG 0.5-1 tablet as need ed Orally once a day for 30 days 04/05/2024 Active Varenicline Tartrate 1 MG 1 tablet after eating with a full glass of water Orally Twice a day for 30 days (BEGIN AFTER COMPLETING 0.5 MG TAB) 02/23/2024 Not-Taking Viibryd 20 MG 1 tablet with food Orally Once a day for 30 days Active traZODone HCl 100 MG TAKE 1.5 TO 2 TABLE TS BY MOUTH ONCE DAILY AT BEDTIME as NEEDED FOR SLEEP for 90 days Active Multivitamin - 1 tablet Orally Once a day Active Vitamin D 50 MCG (1999 UT) 1 tablet Orally Once a day Active Estradiol 1 MG 1 tablet Orally Once a day Active Calcium 600 MG 1 tablet with meals Orally Twice a day Active traZODone HCl 100 MG 1-1.5 tablet at bed time as needed for sleep Orally for 30 days Active Social History Tobacco Use: Social History [...] 30.0 30 1 MG NA Catrina Thacker [facility] - [id number] [id number], [place], [place] NA 0 [place] 1 [id number] 08/22/2023 08/17/2023 ALPRAZolam 30.0 30 1 MG NA Catrina Thacker [facility] - [id number] [facility] [id number], [place], [place] NA 0 [place] 1 [id number] 07/22/2023 07/22/2023 ALPRAZolam 30.0 30 1 MG NA Catrina Thacker [facility] - [id number] [facility] Vital Signs Height 62 in 04/05/2024 Encounters Encounter Location Date Provider Diagnosis [address] [place] [address] 04/05/2024 Rome Borrero Anxiety F41.9 ; Depression F32.9 ; Insomnia G47.00 ; Benzodiazepine dependence F13.20 and Nicotine dependence, unspecified, uncomplicated F17.200 Assessments Encounter Date Diagnosis (ICD Code) Assessment Notes Treatment Notes Treatment Clinical Notes Section Notes 04/05/2024 Anxiety (ICD-10 - F41.9) Duration (acute/chronic) , stability (controlled/unc ontrolled): Chronic, well controlled on current medication regimen, patient able to tolerate decrease in alprazolam to 0.25mg once nightly, wanting to decrease trazodone dose at this time, see HPI Current medications/eff icacy: Improvement reported Previous medication trials: Prozac, Wellbutrin, Zoloft, Effexor (Ineffective), Duloxetine, Vistaril ( sluggish ), vilazadone, alprazolam, trazodone Current/previou s therapies: Follows up with therapy a few times monthly Examination as documented - see pertinent aspects of office visit documentation. Pertinent diagnostics: LABS COLLECTED IN 10/2023 - MONITORED BY PCP RECOMMENDATIONS : CONTINUE alprazolam as prescribed/disc ussed, will consider decreasing further at follow up - educated patient/froilan n on adverse effects, risks and benefits, as well as alternative treatments DECREASE trazodone as discussed/presc ribed to assist with sleep - educated patient/froilan [...] to the emergency department, or contact the [facility] Crisis Unit/Team. Follow up as scheduled in 4 weeks or sooner if necessary. Follow up with PCP and/or other specialists as advised. NEXT STEP: Consider switching to propranolol ER. Consider increasing vilazodone as needed. Consider tapering alprazolam when appropriate/pat ient is ready. 04/05/2024 Depression (ICD-10 - F32.9) See assessment and plan for anxiety 04/05/2024 Insomnia (ICD-10 - G47.00) See assessment and plan for anxiety 04/05/2024 Benzodiazepine dependence (ICD-10 - F13.20) See assessment and plan for anxiety 04/05/2024 Nicotine dependence, unspecified, uncomplicated (ICD-10 - F17.200) [...] health CRISIS, please reach out to [phone] ([facility]), 911, go to the emergency department, or contact the [facility] Crisis Unit/Team. Follow up as scheduled or sooner if necessary. Follow up with PCP and/or other specialists as advised. NEXT STEP: Consider nicotine nasal spray as needed if patient agreeable to trying. Plan Of Treatment Medication Medication Name Sig Start Date Stop Date Notes Xanax 0.5 MG 0.5-1 tablet as need ed Orally once a day for 30 days 04/05/2024 Viibryd 20 MG 1 tablet with food O rally Once a day for 30 days traZODone HCl 100 MG 1-1.5 tablet at bed time as needed for sleep Orally for 30 days Treatment Notes Assessment Notes Anxiety Duration (acute/chronic), stability (controlled/uncontrolled): Chronic, well controlled on current medication regimen, patient able to tolerate decrease in alprazolam to 0.25mg once nightly, wanting to decrease trazodone dose at this time, see HPI Current medications/efficacy: Improvement reported Previous medication trials: Prozac, Wellbutrin, Zoloft, Effexor (Ineffective), Duloxetine, Vistaril ( sluggish ), vilazadone, alprazolam, trazodone Current/previous therapies: Follows up with therapy a few times monthly Examination as documented - see pertinent aspects of office visit documentation. Pertinent diagnostics: LABS COLLECTED IN 10/2023 - MONITORED BY PCP RECOMMENDATIONS: CONTINUE alprazolam as prescribed/discussed, will consider decreasing further at follow up - educated patient/guardian on adverse effects, risks and benefits, as well as alternative treatments DECREASE trazodone as discussed/prescribed to assist with sleep - educated patient/guardian [...] to the emergency department, or contact the [facility] Crisis Unit/Team. Follow up as scheduled in 4 weeks or sooner if necessary. Follow up with PCP and/or other specialists as advised. NEXT STEP: Consider switching to propranolol ER. Consider increasing vilazodone as needed. Consider tapering alprazolam when appropriate/patient is ready. Depression See assessment and p jemma for anxiety Insomnia See assessment and p jemma for anxiety Benzodiazepine dependence See assessment and plan for anxiety Nicotine dependence, unspeci fied, uncomplicated Duration (acute/chronic), [...] health CRISIS, please reach out to [phone] ([facility]), 911, go to the emergency department, or contact the [facility] Crisis Unit/Team. Follow up as scheduled or sooner if necessary. Follow up with PCP and/or other specialists as advised. NEXT STEP: Consider nicotine nasal spray as needed if patient agreeable to trying. Next Appt Details Follow Up: 4 Weeks - TELEPHO NE, Reason: 4 week psych follow up/med refill Progress Notes * Vandana DILLONOB:1970 ( 53 yo F)Acc No.[id number]:04/05/2024 Patient: Carmen CORDOBA Provider: Roland Borrero APN :1970 A ge:53 Y S ex:Female Date:04/05/2024 Address:[address] [place], [place] [id number] Pcp:Cody Torres Subjective: * Chief Complaints: * 1 Month Psych F/U & Med Refill * HPI: S ummary: History of Presenting Illness: Patient is presenting for 4 week follow up. Carmen Dillon is a 53-year-old female who has been managing anxiety, depression, and insomnia. Since her last visit, she reports that her anxiety has been stable, rating it a 4 out of 10. She attributes this stability to her return to work, which keeps her mind occupied and reduces her tendency to worry. Carmen mentions that she has been more active, which is a change from her previous lifestyle of isolation. She experiences occasional high anxiety levels, particularly when overwhelmed by family responsibilities, but manages these episodes by taking alprazolam as needed. Carmen's depression is also rated at a 4 out of 10, and she feels it is about the same as during her last visit. She is currently taking Trazodone for sleep and plans to reduce her dosage from 150 mg to 100 mg at bedtime. She is comfortable with this reduction and will contact the office if she experiences sleep difficulties. Carmen has been on alprazolam since 2005 and is currently taking 0.25 mg at bedtime. She plans to continue this dosage for another month before considering further reduction. Overall, Carmen feels that her medications are in a good place and is focused on maintaining her current regimen while gradually reducing her reliance on medication. Still wanting to come off of alprazolam Has taken 0.5mg only a couple times over the last month - usually only takes 0.25mg once daily as previously discussed/prescribed Doesn't wish to increase vilazodone Wanting to decrease trazodone a little Patient agreeable to decreasing trazodone as discussed. Agreeable to continuing other medications as prescribed. Wanting to continue alprazolam at 0.5-1 tablet (0.25-0.5mg) once daily. Agreeable to following up in 4 weeks, [...] evening. - Appetite unchanged from baseline -Mood: Outside - previously reported Better -Anxiety Rating (10/10 being the worst): 4/10 since last appointment, subjectively about the same, manageable at times - previously reported 4/10, about the same as last visit, manageable, patient reports family/life stressors are improving which may be contributing - things are looking up. -Depression Rating (10/10 being the worst): 4/10 since last appointment, subjectively better - previously reported 4/10 on average, manageable - previously reported [...] 0.5 miles every morning), therapy, going to restorationist, reading bible Goals: Get back to work - [employer] license is , in the process of [...] Not at all-0. 4. Trouble sleeping/relaxing , Not at all-0. 5. Being so restless that it is hard to sit still , Nearly every day-3. 6. Becoming easily annoyed or irritable , Not at all-0.? 7. Feeling afraid, as if something awful might happen , Not at all-0. HARLEEN-7 Score T otal score 3 : D epression Screening: PHQ-9 L ittle [...] in behavioral health treatment . S creening: [place] Suicide Severity Rating Scale (LF) D o [...] sleep and not wake up? N o C SSRS Interpretation and Follow Up Plan: CSSRS Interpretation and Follow Up Plan C SSRS Screen documented using SF Y es R isk Disposition from SF L ow - No Follow Up Plan Required * ROS: P sych ROS: Constitutional A ll systems negative unless indicated otherwise.. P sych D enies AH/VH and delusions, Denies SI/HI. * PSYCH ROS2: mood swings D enies mood lability. I nattention D enies attention deficits. C ompulsive behavior D enies compusive/impulsive behaviors. D epression E ndorses. M sandro D enies symptoms of liya. A ppetite N ormal. C oncentration D enies concentration deficits. S ubstance use D enies. P anic attacks?Denies. A nxiety/Worry E ndorses. I rritability E ndorses. S elf-Harm D enies. S leep D enies sleep difficulties. C omments S ubjective improvement in symptoms with recent medication changes, tolerated recent decrease in alprazolam to 0.25mg nightly, wanting to decrease trazodone dose - See HPI for details. * Medical History: * Surgical History: p artial hysterectomy 2010abscess removal 04/2022 * Hospitalization/Major Diagno stic Procedure: a bscess- [facility] 2022hyo- [facility] 2009 * Family History: F ather: alive, diagnosed with Diabetes mellitus without mention of complication, type II or unspecified type, not stated as uncontrolled. M other: alive, diagnosed with Unspecified essential hypertension, Depression. C hildren: alive, ADHD, drug abuse, diagnosed with Bipolar disorder, unspecified, Depression. 1 son(s) , 1 daughter(s) - healthy. . 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 * Social [...] (Standard) T obacco use: C urrent smoker P rescription # Filled Written Drug Label Qty Days Strength MME Prescriber Pharmacy Refill No. Refills State 09/23/2023 09/23/2023 ALPRAZolam 30.0 30 1 MG NA Catrina Thacker [facility] - [id number] [facility]/pharmacy # [id number], [place], [place] NA 0 [place] 1 [id number] 08/22/2023 08/17/2023 ALPRAZolam 30.0 30 1 MG NA Catrina Thacker [facility] - [id number] [facility]/pharmacy # [id number], [place], [place] NA 0 [place] 1 [id number] 07/22/2023 07/22/2023 ALPRAZolam 30.0 30 1 MG NA Catrina Thacker [facility] - [id number] [facility]/pharmac. * Medications: T akingEstradiol 1 MG Tablet 1 tablet Orally Once a day Calcium 600 MG Tablet 1 tablet with meals Orally Twice a day Multivitamin - Tablet 1 tablet Orally Once a day Vitamin D 50 MCG (1999 UT) Tablet 1 tablet Orally Once a day Viibryd 20 MG Tablet 1 tablet with food Orally Once a day Xanax 0.5 MG Tablet 0.5-1 tablet as needed Orally once a day traZODone HCl 100 MG Tablet TAKE 1.5 TO 2 TABLETS BY MOUTH ONCE DAILY AT BEDTIME as NEEDED FOR SLEEP Taking Estradiol 1 MG Tablet 1 tablet Orally Once a day Taking Calcium 600 MG Tablet 1 tablet with meals Orally Twice a day Taking Multivitamin - Tablet 1 tablet Orally Once a day Taking Vitamin D 50 MCG (2000 UT) Tablet 1 tablet Orally Once a day Taking Viibryd 20 MG Tablet 1 tablet with food Orally Once a day Taking Xanax 0.5 MG Tablet 0.5-1 tablet as needed Orally once a day Taking traZODone HCl 100 MG Tablet TAKE 1.5 TO 2 TABLETS BY MOUTH ONCE DAILY AT BEDTIME as NEEDED FOR SLEEP Not-TakingVarenicline Tartrate 1 MG Tablet 1 tablet after eating with a full glass of water Orally Twice a day (BEGIN AFTER COMPLETING 0.5 MG TAB)Not-Taking Varenicline Tartrate 1 MG Tablet 1 tablet after eating with a full glass of water Orally Twice a day (BEGIN AFTER COMPLETING 0.5 MG TAB)DiscontinuedPropranolol HCl 10 MG Tablet 1 tablet Orally twice daily As needed for anxietyMedication List reviewed and reconciled with the patientDiscontinued Propranolol HCl 10 MG Tablet 1 tablet Orally twice daily As needed for anxietyMedication List reviewed and reconciled with the patient Objective: * Vitals: I nitials: CJP, Ht: 62, LMP: N/A, Pain scale:0. * Examination: G [...] F17.200 Plan: * Treatment: 2. D epression Decrease traZODone HCl Tablet, 100 MG, 1-1.5 tablet at bedtime as needed for sleep Orally, 30 days, 30, Refills 1. Notes: See assessment and plan for anxiety 3. I nsomnia Notes: See assessment and plan for anxiety 4. B enzodiazepine dependence Notes: See assessment and plan for anxiety 5. N icotine dependence, unspecified, uncomplicated Notes: [...] mental health CRISIS, please reach out to [phone] ([facility]), 911, go to the emergency department, or contact the [facility] Crisis Unit/Team. Follow up as scheduled or sooner if necessary. Follow up with PCP and/or other specialists as advised. NEXT STEP: Consider nicotine nasal spray as needed if patient agreeable to trying. * Procedure Codes: 3 008F BODY MASS INDEX [id number] MEDICAL NUTRITION, INDIV, [id number] BEHAV CHNG SMOKING 3-10 MIN * Preventive Medicine: Counseling: C are goal follow-up plan: BMI management provided Y es Above Normal BMI Follow-up L ifestyle education regarding diet S MOKING: Patient counselled on the dangers of tobacco use and urged to quit. . * Follow Up: 4 Weeks - TELEPHONE (Reason: 4 week psych follow up/med refill) * * ICULUM AND INSTRUCTION DIRECTOR Sign off status: Completed true * Provider: Roland Borrero APN Date: 0 04/05/2024 Generated for Feliz vizcaino/Syl/Anthonyitting on: 0 05/27/2024 02:11 PM CDT History and Physical Notes * HPI (History [...] Not at all-0 4. Trouble sleeping/relaxing , Not at al l-0 5. Being so restless that it is hard to sit still , Nearly every day-3 6. Becoming easily annoyed or irritable , Not at all-0 7. Feeling afraid, as if something awful might happen , Not at all-0 HARLEEN-7 Score Total score: 3 : Screening [place] Suicide Sev erity Rating Scale (LF) Do [...] to sleep and not wake up?: No CSSRS Interpretation and Follow Up Plan CSSRS Interpretation and Follow Up Plan CSSRS Screen documented using SF: Yes Risk Disposition from SF: Low - No Follo w Up Plan Required Examination Category Sub-Category Detail Notes Category Not [...]
--- OUTSIDE RECORDS SUMMARY | 2024-05-27 14:12 | XMS_ITS | Referral Summary ---
Author Organization [address] Address [address] [place] [address] Care Team Providers Care Product Sales Representative Name Role Phone Rustam Cool MD Primary Care Provider [phone] Allergies Active Allergy Reactions Criticality Noted Date [...] (02/19/2022): Added automatically from request for surgery [id number] Immunizations Immunization Administration Dates Next Due Influenza, Unspecified 12/30/2021 [...] How often do you attend chur or sikh services? 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
--- OUTSIDE RECORDS SUMMARY | 2024-05-27 14:12 | XMS_ITS | CONTINUITY OF CARE DOCUMENT ---
Author Name aj rocha Address Unknown Organization [facility] Address [address] [place] [address] Phone [phone] Care Team Providers Care Hole Digger Name Role Phone aj rocha Unavailable Unavailable
--- OUTSIDE RECORDS SUMMARY | 2024-05-27 14:12 | XMS_ITS | Clinical Summary ---
Author Organization [address] Address [address] [place] [address] Care Team Providers Care Projector Operator Name Role Phone Rustam Cool MD Primary Care Provider [phone] Allergies Active Allergy Reactions Criticality Noted Date [...] (02/19/2022): Added automatically from request for surgery [id number] Immunizations Immunization Administration Dates Next Due Influenza, [...] How often do you attend chur or alevism services? 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
--- OUTSIDE RECORDS SUMMARY | 2024-05-27 14:12 | XMS_ITS ---
Author Organization [facility] Address [address] [place] [address] Care Team Providers Care License And Permit Specialist Name Role Phone Cody Torres Primary Care Provider [phone] Catrina Thacker Unavailable [phone] REASON FOR VISIT call back from staff Social History Sex Assigned At : Social History Observation Description Sex Assigned At Female Encounters Encounter Location Date Provider Diagnosis [address], [place] [address] 05/24/2024 Cody Torres Plan Of Treatment No Information Progress Notes * Vandana DILLONOB:1970 ( 53 yo F)Acc No.[id number]:05/24/2024 Patient: Carmen CORDOBA :1970 A ge:53 Y S ex:Female Address:[address] [place] [id number] * true * Date: Generated for Munai carrillo/Syl/eTransmitting on: 0 05/27/2024 02:12 PM CDT
--- OUTSIDE RECORDS SUMMARY | 2024-05-27 14:12 | XMS_ITS | Clinical Summary ---
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
--- OUTSIDE RECORDS SUMMARY | 2024-05-27 14:13 | XMS_ITS | Encounter Summary ---
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
--- OUTSIDE RECORDS SUMMARY | 2024-05-27 14:13 | XMS_ITS | Clinical Summary ---
Author Organization [facility] [email or web address] Address [address] [place] [address] Care Team Providers Care Humanities Division Chair Name Role Phone Cody Piña Primary Care Provider [phone] Source Comments [facility] [email or web address],non-owned Affiliates and Associated Physician Practices is amultiple site organization consisting of ambulatory clinics and hospital sitesin [place], [place], [place] and [place]. This disclosure is being madepursuant to the Care Everywhere program and may not contain all information available regarding this patient. Last updated 17.[facility] [email or web address] Allergies Active Allergy Reactions Criticality Noted Date [...] (10/21/2022): Added automatically from request for surgery [id number] Immunizations Name Administration Dates Next Due FLU [...] 50+ (1 of 2 - PCV) 1988 ZOSTER [...] complete this topic MENINGOCOCCAL (Group B) VACCINE SHARED DECISION-MAKING Aged Out No longer eligible based on patient's age to complete this topic MENINGOCOCCAL GROUPS A/C/Y/W VACCINE Aged Out No longer eligible b ased on patient's age to complete this topic Care Teams Humanities Division Chair Relationship Specialty Start Date End Date Cody Piña [address] [facility] [address] [place] [id number] PCP - General 10/20/23
--- OUTSIDE RECORDS SUMMARY | 2024-05-27 14:13 | XMS_ITS | Encounter Summary ---
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
--- OUTSIDE RECORDS SUMMARY | 2024-05-27 14:13 | XMS_ITS | Encounter Summary ---
Author Organization [facility] Facility Care Team Providers Care Forms Designer Name Role Phone Rustam Cool MD Primary Care Provider [phone] Encounter Details Date Type Department Care Team (Latest Contact Info) Description 01/15/2016 Orders Only [facility] CLINCONV ProviderGary MD [address] [place] [address] Social History Tobacco Use Types Packs/Day Years Used Date Smoking Tobacco: Never Assessed Comments Unknown Sex and Gender Information Value Date Recorded Sex Assigned at Not on file Legal Sex Female 9:08 PM EMERGENCY DISPATCH OPERATOR Gender Identity Not on file Sexual Orientation Not on file documented as of this encounter Plan of Treatment Not on file documented as of this encounter Procedures Procedure Name Priority Date/Time Associated Diagnosis Comments CARDIOLOGY REPORT 01/23/2016 12: 00 AM EMERGENCY DISPATCH OPERATOR documented in this encounter Results * CARDIOLOGY REPORT (01/23/2016 12:00 AM EMERGENCY DISPATCH OPERATOR) Anatomical Region Laterality Modality Other Narrative 01/23/2016 12:00 AM EMERGENCY DISPATCH OPERATOR Ordered by an unspecified provider. Historical Provider [facility] HERMILO UREÑA Final Result documented in this encounter Visit Diagnoses Not on filedocumented in this encounter Additional Health Concerns Infection Onset Date Last Indicated Resolved Time COVID: Suspected 05/20/2022 05/20/2022 05/20/2022 1:13 PM CDT documented as of this encounter Care Teams Forms Designer Relationship Specialty Start Date End Date Rustam Cool MD [address] [place] [address] PCP - General 02/05/19 documented as of this encounter
== END 2024-05-27 14:08 | disposition home or self-care (01) ==
PROVIDERS: PCP Internal Medicine; Visit Provider Internal Medicine
DX: I73.9 Peripheral vascular disease, unspecified (principal)
CPT/HCPCS: 93923